=== PATIENT | male | born 1965 | race Caucasian/White ===

== ENCOUNTER 2017-03-03 15:44 | Inpatient (IN) ==
[2017-03-03] MEDS ORDERED: Nitroglycerin 0.4 MG TAB.SUBL SL STA (16:06)
[2017-03-03] MEDS ORDERED: Nitroglycerin 1 INCH/GM PACKET TP ONE (16:06)
[2017-03-03 16:20] LABS: Basophils # 0.1 K/mcL (0.0-0.2); Basophils % 0.6 %; Eosinophils # 0.1 K/mcL (0.0-0.6); Eosinophils % 1.6 %; Hematocrit 41.2 % (37.5-50.1); Hemoglobin 12.5 g/dL (12.9-16.9); Immature Granulocytes % 0.2 % (0-4); Lymphocytes # 2.1 K/mcL (0.6-4.6); Lymphocytes % 24.7 %; Mean Corpuscular HGB Conc 30.3 g/dL (31.6-35.5); Mean Corpuscular Hemoglobin 26.7 pg (28.0-33.3); Mean Corpuscular Volume 87.8 fL (83.0-100.0); Mean Platelet Volume 12.5 fL (9.4-12.4); Monocytes # 0.6 K/mcL (0.0-1.3); Monocytes % 6.8 %; Neutrophils # 5.6 K/mcL (1.6-8.9); Platelet Count 223 K/mcL (140-400); Red Blood Count 4.69 M/mcL (4.19-5.50); Red Cell Distribution Width 14.1 % (11.5-14.5); Segmented Neutrophils % 66.1 %
[2017-03-03 16:31] LABS: BUN/Creatinine Ratio 31 (6-26); Blood Urea Nitrogen 41 mg/dL (8-26); Carbon Dioxide 26 mEq/L (19-29); Chloride 105 mEq/L (98-109); Glucose 171 mg/dL (70-99); Osmolality,Calculated 304 (280-300); Potassium 4.6 mEq/L (3.5-4.5); Sodium 140 mEq/L (136-145); eGFR For African Americans > 60 (> 60); eGFR For Non-African Americans 57 (> 60)
[2017-03-03] MEDS ORDERED: Furosemide 40 MG/4 ML VIAL IVP ONE (16:42)
--- NOTE | 2017-03-03 16:46 | Emergency Department Note ---
Disposition Clinical Impression: Hypoxemia Congestive heart failure Qualifiers: Congestive heart failure type: combined Congestive heart failure chronicity: acute Qualified Code(s): I50.41 - Acute combined systolic (congestive) and diastolic (congestive) heart failure Diabetes Qualifiers: Diabetes mellitus type: type 2 Diabetes mellitus complication status: without complication Diabetes mellitus correction insulin use: without correction use Qualified Code(s): E11.9 - Type 2 diabetes mellitus without complications Disposition: Admitted As Inpatient Condition: Fair Time of Disposition: 16:47 SOB HPI - General Chief Complaint: ED Shortness of Breath/Dyspnea Stated Complaint: CAN Time Seen by Provider: 03/03/17 15:57 Source: other Limitations: no limitations Nursing Notes Reviewed: Yes Vital Signs Reviewed: Yes - History of Present Illness Patient has a history of heart failure and has had a recent echocardiogram ejection fraction 25% which only showed a small pericardial effusion and presents today with shortness of breath progressively worsening for the last 2 weeks and worse with exertion and he also has 30 pounds weight gain. The weight gain and shortness of breath worsened after he got a contrast CT scan to look for a abdominal hernia which came back negative according to the patient. He denies any fever or blurred vision, rhinorrhea, cough, sneezing, blood in the urine or stool. No pain or numbness of extremities. No skin rash or bruising of the skin no chest pain. Social history: No smoking or alcohol - Related Data Home Medications Medication Instructions Recorded Confirmed Insulin LISPRO [Humalog] 35 unit SQ TIDWM 04/10/16 03/03/17 Lisinopril [Zestril] 10 mg PO DAILY 04/10/16 03/03/17 Metformin HCl [Glucophage] 1,000 mg PO BID 05/23/16 03/03/17 Albuterol Sulfate [Proair Hfa] 2 puff IH Q6H PRN 03/03/17 03/03/17 Atorvastatin Calcium [Lipitor] 80 mg PO HS 03/03/17 03/03/17 Carvedilol 12.5 mg PO BID 03/03/17 03/03/17 Fenofibrate [Tricor] 54 mg PO DAILY 03/03/17 03/03/17 Insulin DETEMIR [Levemir] 40 unit SQ QAM 03/03/17 03/03/17 Montelukast [Singulair] 10 mg PO DAILY 03/03/17 03/03/17 SitaGLIPtin [Januvia] 100 mg PO DAILY 03/03/17 03/03/17 Spironolactone [Aldactone] 12.5 mg PO DAILY 03/03/17 03/03/17 Allergies Allergy/AdvReac Type Severity Reaction Status Date / Time Penicillins Allergy Hives Verified 04/10/16 11:31 coconut AdvReac Hives Verified 05/23/16 02:53 Review of Systems: As Per HPI Past Medical History - Past Medical History Medical history: Reports: diabetes, hypertension Surgical history: Reports: non-contributory Psychiatric history: Reports: no psych history - Social History Smoking Status: Never smoker Smokeless Tobacco Status: No Alcohol use: Reports: none Drug use: Reports: none Physical Exam CONSTITUTIONAL: Alert and oriented X3, well-nourished, well appearing, in no apparent distress HEAD: Normocephalic; atraumatic. EYES: PERRL, no scleral icterus. NOSE: The nose is normal in appearance without rhinorrhea RESP: Normal chest excursion with respiration; breath sounds clear and equal bilaterally; no wheezes, rhonchi, or rales CARD: Regular rhythm, without murmurs, rub or gallop ABD: Non-distended; non-tender, soft,without rigidity, rebound or guarding SKIN: Normal for age and race; warm and dry; no apparent lesions Extremities: 3+ bilateral lower extremity edema, pulses 2+ and equal in all 4 extremities - General Limitations: no limitations General appearance: alert, in no apparent distress Course Vital Signs Temperature 97.5 F L 03/03/17 15:45 Pulse Rate 75 03/03/17 15:45 Respiratory Rate 20 03/03/17 15:45 Blood Pressure 129/86 03/03/17 15:45 O2 Sat by Pulse Oximetry 95 03/03/17 15:45 Temperature 97.5 F L 03/03/17 15:45 Pulse Rate 69 03/03/17 17:25 Respiratory Rate 14 03/03/17 17:25 Blood Pressure 109/72 03/03/17 17:25 O2 Sat by Pulse Oximetry 94 03/03/17 17:25 Oxygen Delivery Oxygen Delivery Room Air Shortness of Breath/Dyspnea - MDM Narrative Medical decision making narrative: I did review the patient's labs with minimal increase in the creatinine level, I did review the old records including echocardiogram, patient will receive sublingual nitroglycerin 1, IV Lasix 40 mg I did speak with Dr. Mancilla who accepts the patient for admission 164 Chest x-ray does show pulmonary edema. There is a question about an opacity but I do not find an infectious signs or symptoms when reevaluating the patient so no antibiotics will be given at this time. 1647 I did review the EKG showing normal sinus rhythm with a rate of 74 without acute ischemic change 1733 - Lab Data Result diagrams: 03/03/17 16:10 03/03/17 16:10 Lab Results 03/03/17 03/03/17 03/03/17 Range/Units 16:10 16:10 16:10 WBC 8.5 (4.3-11.1) K/mcL RBC 4.69 (4.19-5.50) M/mcL Hgb 12.5 L (12.9-16.9) g/dL Hct 41.2 (37.5-50.1) % MCV 87.8 (83.0-100.0) fL MCH 26.7 L (28.0-33.3) pg MCHC 30.3 L (31.6-35.5) g/dL RDW 14.1 (11.5-14.5) % Plt Count 223 (140-400) K/mcL MPV 12.5 H (9.4-12.4) fL Immature Gran % 0.2 (0-4) % Seg Neutrophils % 66.1 % Lymphocytes % 24.7 % Monocytes % 6.8 % Eosinophils % 1.6 % Basophils % 0.6 % Neutrophils # 5.6 (1.6-8.9) K/mcL Lymphocytes # 2.1 (0.6-4.6) K/mcL Monocytes # 0.6 (0.0-1.3) K/mcL Eosinophils # 0.1 (0.0-0.6) K/mcL Basophils # 0.1 (0.0-0.2) K/mcL Sodium 140 (136-145) mEq/L Potassium 4.6 H (3.5-4.5) mEq/L Chloride 105 (98-109) mEq/L Carbon Dioxide 26 (19-29) mEq/L BUN 41 H (8-26) mg/dL Creatinine 1.33 H (0.72-1.25) mg/dL Est GFR ( Amer) > 60 (> 60) Est GFR (Non-Af Amer) 57 L (> 60) BUN/Creatinine Ratio 31 H (6-26) Glucose 171 H (70-99) mg/dL Calculated Osmolality 304 H (280-300) Calcium 9.0 (8.6-10.8) mg/dL Troponin I 0.02 (0-0.03) ng/mL B-Natriuretic Peptide (0-100) pg/mL 03/03/ Range/Units 16:10 WBC (4.3-11.1) K/mcL RBC (4.19-5.50) M/mcL Hgb (12.9-16.9) g/dL Hct (37.5-50.1) % MCV (83.0-100.0) fL MCH (28.0-33.3) pg MCHC (31.6-35.5) g/dL RDW (11.5-14.5) % Plt Count (140-400) K/mcL MPV (9.4-12.4) fL Immature Gran % (0-4) % Seg Neutrophils % % Lymphocytes % % Monocytes % % Eosinophils % % Basophils % % Neutrophils # (1.6-8.9) K/mcL Lymphocytes # (0.6-4.6) K/mcL Monocytes # (0.0-1.3) K/mcL Eosinophils # (0.0-0.6) K/mcL Basophils # (0.0-0.2) K/mcL Sodium (136-145) mEq/L Potassium (3.5-4.5) mEq/L Chloride (98-109) mEq/L Carbon Dioxide (19-29) mEq/L BUN (8-26) mg/dL Creatinine (0.72-1.25) mg/dL Est GFR ( Amer) (> 60) Est GFR (Non-Af Amer) (> 60) BUN/Creatinine Ratio (6-26) Glucose (70-99) mg/dL Calculated Osmolality (280-300) Calcium (8.6-10.8) mg/dL Troponin I (0-0.03) ng/mL B-Natriuretic Peptide 961 H (0-100) pg/mL
[2017-03-03] MEDS ORDERED: Naloxone 0.4 MG/ML INJ IVP PRN (17:43)
[2017-03-03] MEDS ORDERED: Ondansetron ODT 4 MG TAB.RAPDIS SL PRN (17:43)
[2017-03-03] MEDS ORDERED: Acetaminophen 325 MG TABLET PO PRN (17:43)
[2017-03-03] MEDS ORDERED: D5% in Water 1,000 ML IVC PRN (17:49)
[2017-03-03] MEDS ORDERED: *HR* Dextrose 50 % in Water (Syg) 50 ML SYRINGE IVP PRN (17:49)
[2017-03-03] MEDS ORDERED: Dextrose Gel 15 GM PO PRN ×2 (17:49)
[2017-03-03] MEDS: *HR* Heparin 5,000 UNIT/ML VIAL SQ SCH (18:41)
--- NOTE | 2017-03-03 18:58 | Internal Med History&Physical ---
<Madisyn Bazan - Last Filed: 03/03/17 20:40> Date of Encounter: 03/03/17 Time of Encounter: 18:47 Assessment and Plan (1) Congestive heart failure Current visit: Yes Status: Acute 1 previous cardiac echo did show EF of 25%-past 2 weeks patient has been experiencing dyspnea on exertion and lower extremity swelling as well as increasing abdominal girth, Orthopnea. He was 90% while ambulating. BNP was 912. We will continue to diurese patient 2 monitor intake and output and daily weights 3 1500 mL fluid restriction 4 low sodium diet Qualifiers: Congestive heart failure type: combined Congestive heart failure chronicity : acute Qualified Code(s): I50.41 - Acute combined systolic (congestive) and diastolic (congestive) heart failure (2) JOSEY (acute kidney injury) Current visit: Yes Status: Acute Creatinine is 1.33 his baseline appears to be around 1.00. Suspect this may be related to CHF, however he states he did receive IV contrast two weeks ago and he noticed weight gain and a decrease in his urine out put. He did hold his metformin 48 hrs post scan. We will continue to trend his creatinine. 2 check urine NA and urinalysis 3 monitor I/O daily weights 4 avoid nephro toxins 5 continue to diurese patient closely monitoring creatinine (3) Diabetes Current visit: Yes Status: Acute 1 Accu-Cheks before meals at bedtime with sliding scale insulin-we will hold oral medications for now and resume on discharge Qualifiers: Diabetes mellitus type: type 2 Diabetes mellitus complication status: without complication Diabetes mellitus skilled nursing insulin use: without skilled nursing use Qualified Code(s): E11.9 - Type 2 diabetes mellitus without complications (4) DVT prophylaxis Current visit: Yes Status: Acute 1 heparin subcutaneous Internal Medicine - H&P: HPI Chief complaint: Dyspnea Admitted From: Emergency Dept Plans for Post Hospital Care: Home History of present illness: Mr. De Oliveira is a 51 year old male past medical history of diabetes hypertension cardiomyopathy CHF and CAD SWAPNIL. Patient has been experiencing increasing shortness of breath as well as a 30 pound weight gain over the past 2 weeks. He does have a known history of nonischemic cardiomyopathy with last ejection fraction was 25% in February 2017. He did have a left heart catheter approximately 4 years ago which was unremarkable per patient report. He apparently had a CT completed approximately 2 weeks ago which did show a small pericardial effusion which was confirmed on echocardiogram. He denies any chest pain cough fever or chills. 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 Walk test SPO2 dropped down to 90%. He did not complain of any chest pain. He presented to the ER for evaluation. According to ER records lab work did show his AK I as well as a BNP of 61 chest x-ray with mild right basilar opacity. He has been admitted for further workup and evaluation Past Med Surg Social Fam HX - Past Medical History Medical history: diabetes, hypertension Psychiatric history: no psych history - Past Surgical History Surgical History: non-contributory - Social History Smoking Status: Never smoker Smokeless Tobacco Status: No Alcohol use: none Drug use: none - Family History Mother Cause of : aneurysm of abdomen Hx Family Cardiac Disorders: Yes ([place] heart transplant) Hx Family Endocrine Disorder: Yes Hx Family Neurologic Disorders: Yes (CVA) Father Hx Family Endocrine Disorder: Yes Internal Medicine - H&P: Meds Insulin LISPRO [Humalog] 35 unit SQ TIDWM 04/10/16 [History] Lisinopril [Zestril] 10 mg PO DAILY 04/10/16 [History] Metformin HCl [Glucophage] 1,000 mg PO BID 05/23/16 [History] Albuterol Sulfate [Proair Hfa] 2 puff IH Q6H PRN 03/03/17 [History] Atorvastatin Calcium [Lipitor] 80 mg PO HS 03/03/17 [History] Carvedilol 12.5 mg PO BID 03/03/17 [History] Fenofibrate [Tricor] 54 mg PO DAILY 03/03/17 [History] Insulin DETEMIR [Levemir] 40 unit SQ QAM 03/03/17 [History] Montelukast [Singulair] 10 mg PO DAILY 03/03/17 [History] SitaGLIPtin [Januvia] 100 mg PO DAILY 03/03/17 [History] Spironolactone [Aldactone] 12.5 mg PO DAILY 03/03/17 [History] 3 Allergy/AdvReac Type Severity Reaction Status Date / Time Penicillins Allergy Hives Verified 04/10/16 11:31 coconut AdvReac Hives Verified 05/23/16 02:53 ROS unobtainable: due to mental status All Systems PM: A 10-system review of systems was performed and is negative for pertinent findings except as documented above in the HPI. - Constitutional Constitutional: weight gain, no chills, no fever(s), no night sweats - EENT Eyes: no change in vision, no discharge, no pain, no photophobia Nose, mouth and throat: no dysphagia, no nasal discharge, no neck pain, no sore throat - Cardiovascular Cardiovascular ROS IM: dyspnea on exertion, edema, orthopnea, no chest pain, no diaphoresis, no dyspnea, no lightheadedness, no palpitations, no syncope - Respiratory Respiratory: no cough, no dyspnea, no wheezing, no excessive phlegm production - Gastrointestinal Gastrointestinal: bloating, early satiety, no abdominal pain, no diarrhea, no hematemesis, no hematochezia, no melena, no nausea, no vomiting - Musculoskeletal Musculoskeletal ROS IM: no numbness, no tingling - Integumentary Integumentary IM: no rash, no unusual bruising - Neurological Neurological ROS: no confusion, no convulsions, no focal weakness, no numbness, no tingling, no tremor(s) - Hematologic/Lymphatic Hematologic/Lymphatic: no easy bruising - Constitutional Vitals: Temp Pulse Resp BP Pulse Ox 97.7 F 74 14 123/83 93 03/03/17 17:54 03/03/17 17:54 03/03/17 17:54 03/03/17 17:54 03/03/17 17:54 General appearance: Present: A&O X 3, morbidly obese - Head Head exam: Present: atraumatic, normocephalic - Eye Eye exam: Present: PERRL, conjuntiva pink, sclera anicteric Pupils: Present: PERRL - Neck Neck exam general surgery: Present: supple, trachea midline. Absent: lymphadenopathy - Respiratory Respiratory exam: Present: CTAB. Absent: accessory muscle use, rales, rhonchi, wheezes - Cardiovascular Cardiovascular exam: Present: RRR, +S1, +S2. Absent: diastolic murmur, gallop, rubs, systolic murmur - GI/Abdominal GI/Abdominal exam: Present: normal bowel sounds, soft, no peritoneal signs. Absent: distended, tenderness - Extremities Exam Extremities exam: Present: warm, radial pulses palpable and symmetrical. Absent : calf tenderness, cyanotic, pedal edema - Neurological Exam Neurological exam: Present: CN II-XII intact, oriented X3, no focal deficits. Absent: pronater drift, facial droop, speech deficit - Skin Skin exam: Present: dry, intact Internal Med - H&P Results - Labs CBC & Chem 7: 03/03/17 16:10 03/03/17 16:10 - EKG Data EKG shows normal: sinus rhythm - Diagnostic Studies Other Images Additional comments: Chest X-Ray 03/03/17 15:58 IMPRESSION: Mild right basilar opacity. Atelectasis versus infection. D/ / Margie Hernandez MD / Margie Hernandez MD Interpreting Provider: Margie Hernandez MD <Dagoberto Huerta - Last Filed: 03/04/17 01:15> Date of Encounter: 03/04/17 Internal Medicine - H&P: HPI History of present illness: Mr. De Oliveira is a 51 year old male All Systems PM: A 10-system review of systems was performed and is negative for pertinent findings except as documented above in the HPI. - Constitutional Vitals: Temp Pulse Resp BP Pulse Ox 97.5 F L 78 16 117/76 95 03/04/17 00:00 03/04/17 00:00 03/04/17 00:00 03/04/17 00:00 03/04/17 00:00 Internal Med - H&P Results - Labs CBC & Chem 7: 03/03/17 16:10 03/03/17 16:10 Labs: Cardiac Enzymes 03/03/17 Range/Units 22:16 Troponin I 0.02 (0-0.03) ng/mL - Attending Attestation I examined this patient and my medical decision-making was reviewed with the HEALTH SERVICES DIRECTOR. I agree with the documented findings, disposition and treatment plan as described except to the extent set forth below. I have seen and examined the patient. Patient is a 51 male with past medical history of CHF, coronary artery disease, SWAPNIL, diabetes and hypertension. He presents to the ED with complaints of shortness of breath. Patient also states he has bilateral leg edema and has had a 30 pound weight gain over the past 2 weeks. Symptoms started about 2 weeks ago and have gradually been worsening. His recent echocardiogram shows LVEF of 25%. Patient will schedule for a routine cardiology outpatient follow-up, but he developed shortness of breath and was advised to go to the ED. Patient denies any other complaints at this time. He does state he feels better after IV Lasix. He has good urine output. Patient has been explained about his condition. He understood and agreed. No unanswered questions. CODE STATUS full code. Heart rate 78, blood pressure 117/76, O2 sat 95% on 2 L nasal cannula. Heart S1 -S2 positive. Lungs bilateral good air entry, mild rales in both bases. Abdomen soft nontender. Extremities bilateral lower leg 1+ edema.
[2017-03-03 19:09] LABS: Bilirubin,Urine Negative (Negative); Blood,Urine Negative (Negative); Clarity,Urine Clear (Clear); Color,Urine Yellow (Yellow); Glucose,Urine (UA) Normal (Normal); Ketones,Urine Negative (Negative); Leukocyte Esterase,Urine Negative (Negative); Nitrite,Urine Negative (Negative); Protein,Urine Negative (Neg-Trace); Specific Gravity,Urine 1.014 (1.010-1.025); Urobilinogen,Urine Normal (Normal)
[2017-03-03] MEDS ORDERED: Insulin LISPRO 300 UNITS/3 ML VIAL SQ SCH (21:00)
[2017-03-03] MEDS ORDERED: Furosemide 40 MG/4 ML VIAL IVP SCH (23:00)
[2017-03-04 01:20] LABS: Basophils # 0.1 K/mcL (0.0-0.2); Basophils % 0.7 %; Eosinophils # 0.2 K/mcL (0.0-0.6); Eosinophils % 2.1 %; Hematocrit 41.3 % (37.5-50.1); Hemoglobin 12.7 g/dL (12.9-16.9); Immature Granulocytes % 0.3 % (0-4); Lymphocytes # 2.5 K/mcL (0.6-4.6); Lymphocytes % 25.8 %; Mean Corpuscular HGB Conc 30.8 g/dL (31.6-35.5); Mean Corpuscular Hemoglobin 26.8 pg (28.0-33.3); Mean Corpuscular Volume 87.3 fL (83.0-100.0); Monocytes # 0.7 K/mcL (0.0-1.3); Monocytes % 7.1 %; Neutrophils # 6.3 K/mcL (1.6-8.9); Platelet Count 222 K/mcL (140-400); Red Blood Count 4.73 M/mcL (4.19-5.50); Red Cell Distribution Width 14.2 % (11.5-14.5)
[2017-03-04 01:37] LABS: BUN/Creatinine Ratio 28 (6-26); Blood Urea Nitrogen 39 mg/dL (8-26); Calcium 9.3 mg/dL (8.6-10.8); Carbon Dioxide 27 mEq/L (19-29); Chloride 102 mEq/L (98-109); Glucose 117 mg/dL (70-99); Magnesium 1.6 mg/dL (1.6-2.6); Osmolality,Calculated 302 (280-300); Potassium 4.2 mEq/L (3.5-4.5); Sodium 141 mEq/L (136-145); eGFR For African Americans > 60 (> 60); eGFR For Non-African Americans 53 (> 60)
[2017-03-04] MEDS: *HR* Heparin 5,000 UNIT/ML VIAL SQ SCH (05:41)
[2017-03-04] MEDS ORDERED: Fenofibrate 54 MG TABLET PO SCH (09:00)
[2017-03-04] MEDS ORDERED: Insulin DETEMIR 100 UNIT/ML X5UNITS SQ SCH (09:00)
[2017-03-04] MEDS: Insulin LISPRO 300 UNITS/3 ML VIAL SQ SCH ×2 (09:45→12:57)
--- NOTE | 2017-03-04 10:46 | Discharge Summary ---
Addendum entered and electronically signed by Chris Wilson, 03/04/17 13:55: Physical exam: Gen.: Patient is awake and alert and oriented 3, sitting up in the chair, no acute distress Lungs: Diminished breath sounds bilaterally, no rales, rhonchi, wheezes noted Heart: Regular rate and rhythm, no murmurs, rubs, gallops Abdomen: Abdomen soft, nontender, nondistended. Normoactive bowel sounds Extremities: Trace bilateral lower extremity edema at the ankle. Peripheral pulses intact. Original Note: <Chris Wilson - Last Filed: 03/04/17 13:50> Date of Encounter: 03/04/17 Time of Encounter: 10:43 - Discharge Diagnosis (1) Congestive heart failure Priority: Primary Status: Acute Qualifiers: Congestive heart failure type: combined Congestive heart failure chronicity : acute on chronic Qualified Code(s): I50.43 - Acute on chronic combined systolic (congestive) and diastolic (congestive) heart failure (2) Hypoxemia Priority: Secondary Status: Resolved (3) Diabetes Priority: Secondary Status: Chronic Qualifiers: Diabetes mellitus type: type 2 Diabetes mellitus complication status: without complication Diabetes mellitus penitentiary insulin use: without intermodal customer service use Qualified Code(s): E11.9 - Type 2 diabetes mellitus without complications (4) JOSEY (acute kidney injury) Priority: Secondary Status: Acute - Discharge Medications Prescriptions: Furosemide [Lasix] 40 mg PO BID #30 tab Home Medications: Insulin LISPRO [Humalog] 35 unit SQ TIDWM 04/10/16 [History] Lisinopril [Zestril] 10 mg PO DAILY 04/10/16 [History] Metformin HCl [Glucophage] 1,000 mg PO BID 05/23/16 [History] Albuterol Sulfate [Proair Hfa] 2 puff IH Q6H PRN 03/03/17 [History] Atorvastatin Calcium [Lipitor] 80 mg PO HS 03/03/17 [History] Carvedilol 12.5 mg PO BID 03/03/17 [History] Fenofibrate [Tricor] 54 mg PO DAILY 03/03/17 [History] Insulin DETEMIR [Levemir] 40 unit SQ QAM 03/03/17 [History] Montelukast [Singulair] 10 mg PO DAILY 03/03/17 [History] SitaGLIPtin [Januvia] 100 mg PO DAILY 03/03/17 [History] Spironolactone [Aldactone] 12.5 mg PO DAILY 03/03/17 [History] Furosemide [Lasix] 40 mg PO BID #30 tab 03/04/17 [Rx] Allergies/Adverse Reactions: 3 Allergy/AdvReac Type Severity Reaction Status Date / Time Penicillins Allergy Hives Verified 04/10/16 11:31 coconut AdvReac Hives Verified 05/23/16 02:53 Date of admission: 03/03/17 20:37 Primary care physician: Kayden Elizondo DO Discharging clinician: Chris Wilson Anticipated date of discharge: 03/04/17 - Patient Status Disposition: Home, Self-Care Condition: Fair Functional capacity at discharge: independent ambulation Overall status at discharge: patient is progressing back to baseline - Ambulatory Orders Ambulatory Orders: Basic Metabolic Panel [CHEM] Time Frame: 03/08/17, Facility: [facility], Location: Lab - Discharge Instructions Instructions: Furosemide (By mouth), Heart Failure (DC), Diabetes Mellitus Type 2 in Adults (DC) Follow Up With: Kayden Elizondo DO [Primary Care Provider] - (1 week, appointment requested, if you do not receive a call for an appointment please call to make appointment within 1 week of discharge) Gayle Silva [Partnered Physician] - (1-2 weeks, appointment requested, if you do not receive a call please call office to make appointment) Additional Instructions: Please resume your home medications. Please take Lasix twice a day. Please have your labs checked on Wednesday. Please limit your fluid and salty food intake. Please weigh yourself daily and take these weights to your doctor's appointments. Please return for any normal worsening symptoms. - Diet and Activity Activity: increase activity as tolerated Diet: low fat, low cholesterol, low salt diet Interval History: Patient seen and examined at bedside. He states that he feels much better today he is sitting up in the chair and appears comfortable in no acute distress. He denies chest pain, shortness of breath. He states his swelling in his lower extremities and upper extremities greatly improved. He reports good urine output overnight. Hospital course: Mr. De Oliveira is a 51 year old male with history of systolic heart failure presented with progressive shortness of breath. Patient also reported orthopnea. Upon arrival patient was found to have an elevated BMP and significant lower extremity edema. Patient was aggressively diuresed and had 5 L of urine output in 24 hours. His edema and respiratory symptoms improved greatly. We recommended to the patient to stay another day for observation and to recheck his kidney function the morning however given the holiday the patient strongly requested to leave. We will discharge the patient home with a prescription for furosemide and in order to have his labs checked on Wednesday. Patient verbalized understanding of the risks of being discharged to soon including worsening of his symptoms and the need to return to the hospital for readmission. The patient will be discharged home in fair condition. - Time Spent with Patient Total time spent providing and/or coordinating discharge services: - Constitutional Vitals: Temp Pulse Resp BP Pulse Ox 97.6 F 73 20 139/99 93 03/04/17 08:00 03/04/17 08:00 03/04/17 08:00 03/04/17 08:00 03/04/17 08:00 General appearance: Present: A&O X 3, morbidly obese <Erasmo Bhatt - Last Filed: 03/04/17 14:06> Date of Encounter: 03/04/17 Date of admission: 03/03/17 20:37 Primary care physician: Kayden Elizondo, Hospital course: Mr. De Oliveira is a 51 year old male - Time Spent with Patient Total time spent providing and/or coordinating discharge services: - Constitutional Vitals: Temp Pulse Resp BP Pulse Ox 97.6 F 73 20 116/82 95 03/04/17 08:00 03/04/17 08:00 03/04/17 08:00 03/04/17 12:00 03/04/17 13:10 General appearance: Present: morbidly obese, no acute distress, obese - Head Head exam: Present: atraumatic, normocephalic - Neck Neck exam general surgery: Present: supple, trachea midline. Absent: lymphadenopathy - Respiratory Respiratory exam: Present: CTAB. Absent: accessory muscle use, rales, rhonchi, wheezes - Cardiovascular Additional comments: edema bilat LE - GI/Abdominal GI/Abdominal exam: Present: normal bowel sounds, soft, no peritoneal signs. Absent: distended, tenderness - Neurological Exam Neurological exam: Present: CN II-XII intact, oriented X3, no focal deficits. Absent: pronater drift, facial droop, speech deficit - Skin Skin exam: Present: dry, intact - Attending Attestation I independently interviewed and examiedn this pt alongside Dr. Wilson , medical claims processor. I agree with his findings, assessment and plan. We discussed CHF dc instructions with the pt including the importance of daily weights. Pt otherwise is doing well and stable for dc. Lasix po prescribed, and repeat BMP next week. All else as above. 32 min spent on dc/coord of care.
[2017-03-04 12:36] VITALS: BP 116/82
--- NOTE | 2017-03-08 08:48 | Electrocardiograph Report ---
[place] [id number] Test Date: 2017-03-03 Pat Name: Tim De Oliveira Department: 104 Room: 2NE29 Gender: M Target Protection Specialist: SHABBIR : 1965 Requested By: Chris Kee Order Number: [id number] Reading MD: Hamzah Reagan DO Measurements Intervals [place] Rate: 74 P: 34 RI: 180 QRS: -56 QRSD: 79 T: 47 QT: 365 QTc: 392 Interpretive Statements SINUS RHYTHM LOW QRS VOLTAGE IN PRECORDIAL LEADS POSSIBLE ANTERIOR MYOCARDIAL INFARCTION, PROBABLY OLD INFERIOR MYOCARDIAL INFARCTION, PROBABLY OLD Electronically Signed On 03-08-2017 8:46:41 EST by Hamzah Reagan DO
== END 2017-03-04 13:30 | disposition home or self-care (01) | DRG 292 ==
LOC: EMEROO 15:44 → 2NENU 15:44
PROVIDERS: ADMIT Internal Medicine; ATTEND Internal Medicine

== ENCOUNTER 2018-12-14 02:52 | Observation (INO) ==
[2018-12-14] MEDS ORDERED: 0.9 % Sodium Chloride 1,000 ML IVC ONE (03:12)
[2018-12-14] MEDS ORDERED: methylPREDNISolone 125 MG/2 ML VIAL IVP ONE (03:12)
[2018-12-14] MEDS ORDERED: Ipratropium/Albuterol Neb 3 ML IH ONE (03:12)
[2018-12-14] MEDS ORDERED: cefTRIAXone 2,000 MG in 0.9 % Sodium Chloride Mini Bag 100 ML IVPB ONE (03:18)
[2018-12-14] MEDS ORDERED: 0.9 % Sodium Chloride 500 ML IV ONE (03:21)
[2018-12-14] MEDS: 0.9 % Sodium Chloride 1,000 ML IVC SCH ×2 (03:30→04:37)
[2018-12-14 03:38] LABS: ABG Base Excess 9 mEq/L (-2 to 3); ABG HCO3 35 mEq/L (21-27); ABG Oxygen Saturation 95 % (95-98); ABG PCO2 51 mmHg (35-45); ABG PH 7.44 pH Units (7.32-7.45); ABG PO2 73 mmHg (85-104); ABG TCO2 37 mEq/L (20-26)
[2018-12-14] MEDS ORDERED: cefTRIAXone 2,000 MG in Water for inj. (sterile) 20 ML IVPB ONE (03:45)
[2018-12-14 03:55] LABS: Basophils # 0.1 K/mcL (0.0-0.2); Basophils % 0.4 %; Eosinophils # 0.1 K/mcL (0.0-0.6); Eosinophils % 0.9 %; Hematocrit 39.8 % (37.5-50.1); Hemoglobin 12.9 g/dL (12.9-16.9); Immature Granulocytes % 0.5 % (0-4); Lymphocytes # 1.2 K/mcL (0.6-4.6); Lymphocytes % 8.3 %; Mean Corpuscular HGB Conc 32.4 g/dL (31.6-35.5); Mean Corpuscular Volume 86.5 fL (83.0-100.0); Mean Platelet Volume 12.3 fL (9.4-12.4); Monocytes # 0.8 K/mcL (0.0-1.3); Monocytes % 5.4 %; Neutrophils # 11.8 K/mcL (1.6-8.9); Platelet Count 186 K/mcL (140-400); Red Cell Distribution Width 14.9 % (11.5-14.5); Segmented Neutrophils % 84.5 %
[2018-12-14 04:04] LABS: INR 1.2; Prothrombin Time 13.1 Seconds (9.4-12.1)
[2018-12-14 04:07] LABS: Activated Partial Thrombo Time 26.6 Seconds (26.0-36.0)
[2018-12-14 04:13] LABS: BUN/Creatinine Ratio 30 (6-26); Blood Urea Nitrogen 35 mg/dL (6-20); Calcium 9.7 mg/dL (8.6-10.3); Carbon Dioxide 32 mEq/L (23-29); Chloride 92 mEq/L (98-107); Glucose 222 mg/dL (70-105); Osmolality,Calculated 295 (280-300); Potassium 3.7 mEq/L (3.5-5.1); Sodium 135 mEq/L (136-145); eGFR For African Americans > 60 (> 60); eGFR For Non-African Americans > 60 (> 60)
[2018-12-14 04:14] LABS: Albumin 4.2 g/dL (3.5-5.7); Albumin/Globulin Ratio 1.5 (1.1-2.2); Bilirubin,Direct 0.1 mg/dL (0.0-0.2); Bilirubin,Indirect 0.6 mg/dL (0.0-1.2); Bilirubin,Total 0.7 mg/dL (0.3-1.0); Globulin 2.8 g/dL (2.4-3.5); Magnesium 1.5 mg/dL (1.6-2.6); Phosphorous 3.6 mg/dL (2.7-4.5)
[2018-12-14 04:17] LABS: Troponin I 0.04 ng/mL (< 0.04)
[2018-12-14] MEDS ORDERED: Isovue-370 500 ML BOTTLE IVP ONE (04:19)
[2018-12-14 05:35] LABS: Bilirubin,Urine Negative (Negative); Blood,Urine Negative (Negative); Clarity,Urine Clear (Clear); Color,Urine Yellow (Yellow); Glucose,Urine (UA) 250 mg/dL (Normal); Ketones,Urine Negative (Negative); Leukocyte Esterase,Urine Negative (Negative); Nitrite,Urine Negative (Negative); PH,Urine 5.5 pH Units (5.0-8.0); Protein,Urine Negative (Neg-Trace); Specific Gravity,Urine 1.017 (1.010-1.025); Urobilinogen,Urine Normal (Normal)
[2018-12-14] MEDS ORDERED: levoFLOXacin 750 MG/150 ML 750 MG/150 ML BAG IVPB ONE ×2 (06:11→11:00)
[2018-12-14] MEDS ORDERED: *HR* HYDROcodone/Acet 5/325 mg TABLET PO ONE (06:13)
--- NOTE | 2018-12-14 06:38 | Emergency Department Note ---
Disposition Clinical Impression: Troponin level elevated Pneumonia Qualifiers: Pneumonia type: due to unspecified organism Laterality: bilateral Lung locat ion: lower lobe of lung Qualified Code(s): J18.1 - Lobar pneumonia, unspecified organism Sepsis Qualifiers: Sepsis type: sepsis due to unspecified organism Sepsis acute organ dysfunction status: without acute organ dysfunction Qualified Code(s): A41.9 - Sepsis, unspecified organism Disposition: Admitted As Inpatient Condition: Fair Forms: ED Satisfaction Letter Time of Disposition: 06:13 URI/Sore Throat HPI - General Chief Complaint: ED Upper Respiratory Infection Stated Complaint: cough, chills Time Seen by Provider: 12/14/18 02:59 Source: patient Limitations: no limitations Nursing Notes Reviewed: Yes Vital Signs Reviewed: Yes - History of Present Illness HPI Narrative: 53-year-old male patient presents to the emergency room for complaining of cough with shortness of breath. Sputum production. He has been short of breath. He was seen at [facility] and placed on Z-Ildefonso but did not get any better and saw his family doctor December 13 and was placed on codeine syrup and steroids. He states that he still was becoming winded. He does not smoke. No recent surgeries or long distance car rides or trips. Pt Subjective Complaint: fever, cough, nasal congestion Onset (ago): week(s) (1) Duration: constant, gradually worsening Severity: moderate Improves with: nothing Worsens with: exertion, speaking If sputum, description: yellow Associated symptoms: Reports: fever, chills, rhinorrhea, nasal congestion, shortness of breath. Denies: voice changes, myalgias, sore throat, abdominal pain, vomiting, diarrhea, dysuria, ear pain - Related Data Home Medications Medication Instructions Recorded Confirmed Lisinopril [Zestril] 10 mg PO DAILY 04/10/16 06/04/18 Metformin HCl [Glucophage] 1,000 mg PO BID 05/23/16 06/04/18 Albuterol Sulfate [Proair Hfa] 2 puff IH Q6H PRN 03/03/17 06/04/18 Atorvastatin Calcium [Lipitor] 80 mg PO HS 03/03/17 06/04/18 Carvedilol 12.5 mg PO BID 03/03/17 06/04/18 Fenofibrate [Tricor] 54 mg PO DAILY 03/03/17 06/04/18 Montelukast [Singulair] 10 mg PO DAILY 03/03/17 06/04/18 SitaGLIPtin [Januvia] 100 mg PO DAILY 03/03/17 06/04/18 Spironolactone [Aldactone] 12.5 mg PO DAILY 03/03/17 06/04/18 Previous Rx's Medication Instructions Recorded Furosemide [Lasix] 40 mg PO BID #30 tab 03/04/17 Azithromycin [Zithromax] 0 mg PO Q24H #6 tablet 06/04/18 Ofloxacin *EAR* Drops [Floxin] 2 drop RIGHT EAR 5XD #10 bottle 06/04/18 Allergies Allergy/AdvReac Type Severity Reaction Status Date / Time coconut AdvReac Hives Verified 12/14/18 02:55 All systems ED: reviewed and negative except as stated. Constitutional: Reports: fever, chills. Denies: weakness, weight change Eyes: Denies: eye pain, eye discharge, vision change ENT ED: Denies: ear pain, throat pain, dental pain, hearing loss, epistaxis, congestion, dysphagia Cardiovascular: Denies: chest pain, palpitations, dyspnea on exertion, edema, syncope URI PMH - Past Medical History Medical history: Reports: diabetes, hypertension Surgical history: Reports: non-contributory Psychiatric history: Reports: no psych history Family history: Reports: non-contributory - Social History Smoking Status: Never smoker Alcohol use: Reports: none Drug use: Reports: none Physical Exam - General Limitations: no limitations General appearance: alert, in no apparent distress - Head Head exam: atraumatic, normocephalic, normal inspection - Eye Eye exam: Present: normal appearance, PERRL, EOMI - ENT ENT exam: normal exam, normal oropharynx, mucous membranes moist - Neck Neck exam: Present: normal inspection, full ROM, trachea midline. Absent: tenderness - Chest Chest inspection: Present: normal inspection, symmetric chest wall rise. Absent: tenderness - Respiratory Respiratory exam: Present: normal lung sounds bilaterally, respiratory distress, wheezes, other (Not moving much air) - Cardiovascular Cardiovascular exam: Present: tachycardia (At 106), normal heart sounds - Abdominal Exam Abdominal exam: Present: soft, Non-Tender, normal bowel sounds. Absent: tenderness, distention, guarding, rebound, rigidity - Extremities Exam Extremities exam: Present: normal inspection, full ROM, normal capillary refill. Absent: tenderness, pedal edema, joint swelling, calf tenderness - Back Exam Back exam: Present: normal inspection, full ROM. Absent: tenderness, CVA tenderness (R), CVA tenderness (L) - Neurological Exam Neurological exam: Present: alert, oriented X3, CN II-XII intact - Psychiatric Psychiatric exam: Present: normal affect, normal mood - Skin Skin exam: Present: warm, dry, intact, normal color Course Course Narrative: Patient was placed in examination room. H&P obtained. Nurse notes reviewed. Patient basic blood work, a chest x-ray which showed no obvious acute infiltrate but probable bronchitis. Patient did meet systemic inflammatory response syndrome criteria. Patient does have a leukocytosis but also has taken 1 day worth of prednisone. Patient has not been admitted to the hospital last 30 days but actually not in the last several months. Therefore patient was given 2 g of Rocephin IV after he had blood cultures obtained followed with Levaquin [address] scan was obtained to rule out pulmonary embolism and it was negative for pulmonary embolism. However, patient does have bilateral left greater than right lower lobe pneumonia. Levaquin at this point was added. Patient was ordered a 30 mL/kg bolus based on abnormal body weight of 70 kg Sepsis was diagnosed at 0435. Patient will be admitted to Dr. Martinez - Reevaluation(s) Reevaluation #1: Patient labs were reviewed as well as chest x-ray and EKG. Results discussed with patient Time: 05:00 Reevaluation #2: Patient is resting comfortably and reviewed all his results. Time: 06:50 Vital Signs Temperature 100.3 F H 12/14/18 02:53 Pulse Rate 106 12/14/18 02:53 Respiratory Rate 12/14/18 02:53 Blood Pressure 147/85 12/14/18 02:53 O2 Sat by Pulse Oximetry 90 12/14/18 02:53 Temperature 100.3 F H 12/14/18 02:53 Pulse Rate 81 12/14/18 06:22 Respiratory Rate 20 12/14/18 06:22 Blood Pressure 124/68 12/14/18 06:22 O2 Sat by Pulse Oximetry 95 12/14/18 06:22 Oxygen Delivery Oxygen Delivery Nasal Cannula Upper Respiratory Infection - Medical Records Medical records reviewed: Yes I reviewed the patient's medical records. - Lab Data Lab results reviewed: Yes I reviewed the patient's lab results. Result diagrams: 12/14/18 03:12 12/14/18 03:12 Lab Results 12/14/18 12/14/18 12/14/18 Range/Units 03:12 03:12 03:13 WBC 14.0 H (4.3-11.1) K/mcL RBC 4.60 (4.19-5.50) M/mcL Hgb 12.9 (12.9-16.9) g/dL Hct 39.8 (37.5-50.1) % MCV 86.5 (83.0-100.0) fL MCH 28.0 (28.0-33.3) pg MCHC 32.4 (31.6-35.5) g/dL RDW 14.9 H (11.5-14.5) % Plt Count 186 (140-400) K/mcL MPV 12.3 (9.4-12.4) fL Immature Gran % 0.5 (0-4) % Seg Neutrophils % 84.5 % Lymphocytes % 8.3 % Monocytes % 5.4 % Eosinophils % 0.9 % Basophils % 0.4 % Neutrophils # 11.8 H (1.6-8.9) K/mcL Lymphocytes # 1.2 (0.6-4.6) K/mcL Monocytes # 0.8 (0.0-1.3) K/mcL Eosinophils # 0.1 (0.0-0.6) K/mcL Basophils # 0.1 (0.0-0.2) K/mcL PT 13.1 H (9.4-12.1) Seconds INR 1.2 APTT 26.6 (26.0-36.0) Seconds ABG pH (7.32-7.45) pH Units ABG pCO2 (35-45) mmHg ABG pO2 (85-104) mmHg ABG HCO3 (21-27) mEq/L ABG Total CO2 (20-26) mEq/L ABG O2 Saturation (95-98) % ABG Base Excess (-2 to 3) mEq/L O2 Delivery Device Inspired O2 (1-15=lpm [id number]=%) Sodium 135 L (136-145) mEq/L Potassium 3.7 (3.5-5.1) mEq/L Chloride 92 L (98-107) mEq/L Carbon Dioxide 32 H (23-29) mEq/L BUN 35 H (6-20) mg/dL Creatinine 1.17 (0.70-1.30) mg/dL Est GFR ( Amer) > 60 (> 60) Est GFR (Non-Af Amer) > 60 (> 60) BUN/Creatinine Ratio 30 H (6-26) Glucose 222 H (70-105) mg/dL Calculated Osmolality 295 (280-300) Lactic Acid (0.5-2.2) mmol/L Calcium 9.7 (8.6-10.3) mg/dL Phosphorus (2.7-4.5) mg/dL Magnesium (1.6-2.6) mg/dL Total Bilirubin (0.3-1.0) mg/dL Direct Bilirubin (0.0-0.2) mg/dL Indirect Bilirubin (0.0-1.2) mg/dL AST (13-39) Units/L ALT (7-52) Units/L Alkaline Phosphatase (34-104) Units/L Troponin I (< 0.04) ng/mL Serum Total Protein (6.4-8.9) g/dL Albumin (3.5-5.7) g/dL Globulin (2.4-3.5) g/dL Albumin/Globulin Ratio (1.1-2.2) Urine Color (Yellow) Urine Clarity (Clear) Urine pH (5.0-8.0) pH Units Ur Specific [place] (1.010-1.025) Urine Protein (Neg-Trace) mg/dL Urine Glucose (UA) (Normal) mg/dL Urine Ketones (Negative) mg/dL Urine Blood (Negative) Urine Nitrite (Negative) Urine Bilirubin (Negative) Urine Urobilinogen (Normal) mg/dL Ur Leukocyte Esterase (Negative) 12/14/18 12/14/18 12/14/18 Range/Units 03:13 03:20 03:32 WBC (4.3-11.1) K/mcL RBC (4.19-5.50) M/mcL Hgb (12.9-16.9) g/dL Hct (37.5-50.1) % MCV (83.0-100.0) fL MCH (28.0-33.3) pg MCHC (31.6-35.5) g/dL RDW (11.5-14.5) % Plt Count (140-400) K/mcL MPV (9.4-12.4) fL Immature Gran % (0-4) % Seg Neutrophils % % Lymphocytes % % Monocytes % % Eosinophils % % Basophils % % Neutrophils # (1.6-8.9) K/mcL Lymphocytes # (0.6-4.6) K/mcL Monocytes # (0.0-1.3) K/mcL Eosinophils # (0.0-0.6) K/mcL Basophils # (0.0-0.2) K/mcL PT (9.4-12.1) Seconds INR APTT (26.0-36.0) Seconds ABG pH 7.44 (7.32-7.45) pH Units ABG pCO2 51 H (35-45) mmHg ABG pO2 73 L (85-104) mmHg ABG HCO3 35 H (21-27) mEq/L ABG Total CO2 37 H (20-26) mEq/L ABG O2 Saturation 95 (95-98) % ABG Base Excess 9 H (-2 to 3) mEq/L O2 Delivery Device Cannula Inspired O2 2.0 (1-15=lpm [id number]=%) Sodium (136-145) mEq/L Potassium (3.5-5.1) mEq/L Chloride (98-107) mEq/L Carbon Dioxide (23-29) mEq/L BUN (6-20) mg/dL Creatinine (0.70-1.30) mg/dL Est GFR ( Amer) (> 60) Est GFR (Non-Af Amer) (> 60) BUN/Creatinine Ratio (6-26) Glucose (70-105) mg/dL Calculated Osmolality (280-300) Lactic Acid 2.2 (0.5-2.2) mmol/L Calcium (8.6-10.3) mg/dL Phosphorus 3.6 (2.7-4.5) mg/dL Magnesium 1.5 L (1.6-2.6) mg/dL Total Bilirubin 0.7 (0.3-1.0) mg/dL Direct Bilirubin 0.1 (0.0-0.2) mg/dL Indirect Bilirubin 0.6 (0.0-1.2) mg/dL AST 18 (13-39) Units/L ALT 16 (7-52) Units/L Alkaline Phosphatase 59 (34-104) Units/L Troponin I 0.04 H* (< 0.04) ng/mL Serum Total Protein 7.0 (6.4-8.9) g/dL Albumin 4.2 (3.5-5.7) g/dL Globulin 2.8 (2.4-3.5) g/dL Albumin/Globulin Ratio 1.5 (1.1-2.2) Urine Color (Yellow) Urine Clarity (Clear) Urine pH (5.0-8.0) pH Units Ur Specific [place] (1.010-1.025) Urine Protein (Neg-Trace) mg/dL Urine Glucose (UA) (Normal) mg/dL Urine Ketones (Negative) mg/dL Urine Blood (Negative) Urine Nitrite (Negative) Urine Bilirubin (Negative) Urine Urobilinogen (Normal) mg/dL Ur Leukocyte Esterase (Negative) 12/14/18 Range/Units 04:42 WBC (4.3-11.1) K/mcL RBC (4.19-5.50) M/mcL Hgb (12.9-16.9) g/dL Hct (37.5-50.1) % MCV (83.0-100.0) fL MCH (28.0-33.3) pg MCHC (31.6-35.5) g/dL RDW (11.5-14.5) % Plt Count (140-400) K/mcL MPV (9.4-12.4) fL Immature Gran % (0-4) % Seg Neutrophils % % Lymphocytes % % Monocytes % % Eosinophils % % Basophils % % Neutrophils # (1.6-8.9) K/mcL Lymphocytes # (0.6-4.6) K/mcL Monocytes # (0.0-1.3) K/mcL Eosinophils # (0.0-0.6) K/mcL Basophils # (0.0-0.2) K/mcL PT (9.4-12.1) Seconds INR APTT (26.0-36.0) Seconds ABG pH (7.32-7.45) pH Units ABG pCO2 (35-45) mmHg ABG pO2 (85-104) mmHg ABG HCO3 (21-27) mEq/L ABG Total CO2 (20-26) mEq/L ABG O2 Saturation (95-98) % ABG Base Excess (-2 to 3) mEq/L O2 Delivery Device Inspired O2 (1-15=lpm [id number]=%) Sodium (136-145) mEq/L Potassium (3.5-5.1) mEq/L Chloride (98-107) mEq/L Carbon Dioxide (23-29) mEq/L BUN (6-20) mg/dL Creatinine (0.70-1.30) mg/dL Est GFR ( Amer) (> 60) Est GFR (Non-Af Amer) (> 60) BUN/Creatinine Ratio (6-26) Glucose (70-105) mg/dL Calculated Osmolality (280-300) Lactic Acid (0.5-2.2) mmol/L Calcium (8.6-10.3) mg/dL Phosphorus (2.7-4.5) mg/dL Magnesium (1.6-2.6) mg/dL Total Bilirubin (0.3-1.0) mg/dL Direct Bilirubin (0.0-0.2) mg/dL Indirect Bilirubin (0.0-1.2) mg/dL AST (13-39) Units/L ALT (7-52) Units/L Alkaline Phosphatase (34-104) Units/L Troponin I (< 0.04) ng/mL Serum Total Protein (6.4-8.9) g/dL Albumin (3.5-5.7) g/dL Globulin (2.4-3.5) g/dL Albumin/Globulin Ratio (1.1-2.2) Urine Color Yellow (Yellow) Urine Clarity Clear (Clear) Urine pH 5.5 (5.0-8.0) pH Units Ur Specific [place] 1.017 (1.010-1.025) Urine Protein Negative (Neg-Trace) mg/dL Urine Glucose (UA) 250 H (Normal) mg/dL Urine Ketones Negative (Negative) mg/dL Urine Blood Negative (Negative) Urine Nitrite Negative (Negative) Urine Bilirubin Negative (Negative) Urine Urobilinogen Normal (Normal) mg/dL Ur Leukocyte Esterase Negative (Negative) - Radiology Data Radiology results reviewed: Yes I reviewed the patient's radiology results. - EKG Data EKG attestation: Yes I reviewed and interpreted this EKG. EKG results narrative: EKG shows a normal sinus rhythm 95 bpm normal intervals and left axis deviation no acute ST elevations. Critical Care Time Critical Care Time: Yes Total Critical Care Time: 30 Attestation: The high probability of a clinically significant, sudden or life threatening deterioration of the patient's condition required my full and direct attention, intervention and personal management.
--- NOTE | 2018-12-14 07:46 | Internal Med History&Physical ---
Date of Encounter: 12/14/18 Time of Encounter: 07:44 Internal Medicine - H&P: HPI Chief complaint: SOB Admitted From: Emergency Dept History of present illness: Tim De Oliveira is a 53 M w hx HFrEF 35%, HTN, DM2, SWAPNIL, morbid obesity, who p/w SOB. Began 4-5 days ago. Associated with cough and general malaise. Went to urgent care a few days ago for SOB and cough for which he was given azithro without improvement, and saw his PCP yesterday for regular appt and was placed on codeine cough syrup. However, last night he began to spike a fever and have sweats and developed nausea and vomited x1 so came to ED. He has been hospitalized before for CHF and says he has not had any of the swelling or weight gain that he did then. Denies CP. In the ED, vitals T 100.3, HR 100s, RR 20s, SBP 120-140s, satting 90% RA and 96% on 2L. Labs notable for WBC 14, Hb 13, HCO3 32, BUN 35, Cr 1.2, BG 220, Lactate 2.2, Mg 1.5, trop 0.04. Urine unremarkable. ABG shows pCO2 51. CXR w bibasilar infiltrates v edema, and CT shows bibasilar pneumonia. Cultures obtained, given NS 1L and doses of Rocephin and Levaquin, and admitted. Past medical, surgical, social, and family histories reviewed and updated as below. Past Med Surg Social Fam HX - Past Medical History Medical history: diabetes, hypertension Psychiatric history: no psych history - Past Surgical History Surgical History: non-contributory Additional surgical history: heart cath - Social History Smoking Status: Never smoker Smokeless Tobacco Status: No Alcohol use: none Drug use: none - Family History Mother Hx Family Cardiac Disorders: Yes ([place] heart transplant) Hx Family Endocrine Disorder: Yes Hx Family Neurologic Disorders: Yes (CVA) Father Hx Family Endocrine Disorder: Yes Internal Medicine - H&P: Meds Lisinopril [Zestril] 10 mg PO DAILY 04/10/16 [History] Metformin HCl [Glucophage] 1,000 mg PO BID 05/23/16 [History] Atorvastatin Calcium [Lipitor] 80 mg PO HS 03/03/17 [History] Carvedilol 12.5 mg PO BID 03/03/17 [History] Fenofibrate [Tricor] 54 mg PO DAILY 03/03/17 [History] Spironolactone [Aldactone] 12.5 mg PO DAILY 03/03/17 [History] Furosemide [Lasix] 40 mg PO BID #30 tab 03/04/17 [Rx] Insulin Glargine [Lantus] 0 unit 12/14/18 [History] Insulin LISPRO [HumaLOG] 0 units SQ TIDWM 12/14/18 [History] Allergy/AdvReac Type Severity Reaction Status Date / Time coconut AdvReac Hives Verified 12/14/18 02:55 All Systems PM: A 10-system review of systems was performed and is negative for pertinent findings except as documented above in the HPI. - Constitutional Vitals: Temp Pulse Resp BP Pulse Ox 100.3 F H 81 20 124/68 95 12/14/18 02:53 12/14/18 06:22 12/14/18 06:22 12/14/18 06:22 12/14/18 06:22 Exam: General: NAD, good eye contact, well appearing, obese, diaphoretic Head: Atraumatic, normocephalic. Face symmetric Eyes: EOMI, sclerae anicteric ENT: Mucous membranes dry. Normal oral mucosa and dentition. Trachea midline. Thoracic: No visible chest wall deformities. Coarse biphasic breath sounds b/l bases, no wheezing Cardio: Normal S1 and S2, regular rate and rhythm Abdomen: Soft, nontender, nondistended, obese Extremities: Warm, well perfused. DP pulses 2+ b/l. No clubbing, cyanosis. No edema Skin: Intact. No rashes, bruises, or ulcers Neuro: Awake, fully oriented. Good memory, concentration, attention. Speech fluent. CN II-XII grossly intact. Strength 5/5 in b/l UE and LE Internal Med - H&P Results - Labs CBC & Chem 7: 12/14/18 03:12 12/14/18 03:12 Labs: Short CBC 12/14/18 Range/Units 03:12 WBC 14.0 H (4.3-11.1) K/mcL Hgb 12.9 (12.9-16.9) g/dL Hct 39.8 (37.5-50.1) % Plt Count 186 (140-400) K/mcL Neutrophils # 11.8 H (1.6-8.9) K/mcL BMP 12/14/18 03:12 Sodium 135 L Potassium 3.7 Chloride 92 L Carbon Dioxide 32 H BUN 35 H Creatinine 1.17 Glucose 222 H Calcium 9.7 Cardiac Enzymes 12/14/18 Range/Units 03:13 Troponin I 0.04 H* (< 0.04) ng/mL Liver Function 12/14/18 Range/Units 03:13 Total Bilirubin 0.7 (0.3-1.0) mg/dL Direct Bilirubin 0.1 (0.0-0.2) mg/dL AST 18 (13-39) Units/L ALT 16 (7-52) Units/L Alkaline Phosphatase 59 (34-104) Units/L Albumin 4.2 (3.5-5.7) g/dL Urine 12/14/18 Range/Units 04:42 Urine Color Yellow (Yellow) Urine Clarity Clear (Clear) Urine pH 5.5 (5.0-8.0) pH Units Ur Specific [place] 1.017 (1.010-1.025) Urine Protein Negative (Neg-Trace) mg/dL Urine Glucose (UA) 250 H (Normal) mg/dL - ABG Interpretation ABG results: 12/14/18 03:32 ABG pH 7.44 ABG pCO2 51 H ABG pO2 73 L ABG HCO3 35 H ABG Total CO2 37 H ABG O2 Saturation 95 ABG Base Excess 9 H - Impressions ITS Impressions Chest X-Ray 12/14/18 03:14 IMPRESSION: Volume overload versus bronchitis. D/ / Elbert Mello / Elbert Mello Interpreting Provider: Elbert Mello Chest CTA 12/14/18 04:19 IMPRESSION: Bilateral lower lobe pneumonia. Reactive mediastinal lymphadenopathy. No pulmonary embolism. D/ / Elbert Mello / Elbert Mello Interpreting Provider: Elbert Mello - Summary of Assessment and Plan Summary of Assessment and Plan: Tim De Oliveira is a 53 M w hx HFrEF 35%, HTN, DM2, SWAPNIL, morbid obesity, Bibasilar PNA: seen on CXR, s/p rocephin and levaquin and solumedrol in ED - UAg's, procal - empiric levaquin 750 daily - IS, acapella, mucinex Sepsis: SIRS 4/, suspected PNA as above, lactate 2.2 improved to 1 w fluids - BCx x2 pending - fluid boluses prn - empiric abx as above Hypomagnesemia: replace and monitor Hypokalemia: replace and monitor HFrEF 35%: home ACEi, jin; holding home lasix 40 bid for now DM2: uncontrolled, w hyperglycemia, home basal SWAPNIL: CPAP qhs Morbid obesity: BMI 45 PPx: lovenox Tele: no Activity: up ad suze FEN: cardiac ADA 1.5L, no MIVF Lines: PIV Consults: Code: Full Dispo: obs for PNA and sepsis, anticipate 1-2 days, will be homegoing
[2018-12-14] MEDS ORDERED: Acetaminophen 325 MG TABLET PO PRN (09:16)
[2018-12-14] MEDS ORDERED: Ondansetron 4 MG/2 ML VIAL IVP PRN (09:16)
[2018-12-14] MEDS: Spironolactone 25 MG TABLET PO SCH (11:05)
[2018-12-14] MEDS ORDERED: D5% in Water 1,000 ML IVC PRN (11:13)
[2018-12-14] MEDS ORDERED: *HR* Dextrose 50 % in Water (Syg) 50 ML SYRINGE IVP PRN (11:13)
[2018-12-14] MEDS ORDERED: Dextrose Gel 15 GM/37.5 ML TUBE PO PRN ×2 (11:13)
[2018-12-14] MEDS: Insulin LISPRO 300 UNITS/3 ML VIAL SQ SCH ×2 (12:31→17:59)
[2018-12-14] MEDS ORDERED: Insulin DETEMIR 100 UNIT/ML X5UNITS SQ SCH (21:00)
[2018-12-14] MEDS ORDERED: Insulin LISPRO 300 UNITS/3 ML VIAL SQ SCH (21:00)
[2018-12-14] MEDS ORDERED: Albuterol 2.5 MG/3 ML NEBULIZER IH PRN (21:24)
[2018-12-15 05:50] LABS: Hematocrit 38.5 % (37.5-50.1); Mean Corpuscular HGB Conc 31.2 g/dL (31.6-35.5); Mean Corpuscular Hemoglobin 27.9 pg (28.0-33.3); Mean Corpuscular Volume 89.5 fL (83.0-100.0); Mean Platelet Volume 12.5 fL (9.4-12.4); Platelet Count 181 K/mcL (140-400); Red Cell Distribution Width 14.6 % (11.5-14.5); White Blood Count 13.3 K/mcL (4.3-11.1)
[2018-12-15] MEDS ORDERED: *HR* Enoxaparin 40 MG/0.4 ML SYRINGE SQ SCH (06:00)
[2018-12-15 06:19] LABS: BUN/Creatinine Ratio 36 (6-26); Blood Urea Nitrogen 43 mg/dL (6-20); Calcium 9.2 mg/dL (8.6-10.3); Carbon Dioxide 30 mEq/L (23-29); Chloride 94 mEq/L (98-107); Glucose 302 mg/dL (70-105); Magnesium 2.5 mg/dL (1.6-2.6); Osmolality,Calculated 296 (280-300); Potassium 4.8 mEq/L (3.5-5.1); Sodium 132 mEq/L (136-145); eGFR For African Americans > 60 (> 60); eGFR For Non-African Americans > 60 (> 60)
[2018-12-15] MEDS: Insulin LISPRO 300 UNITS/3 ML VIAL SQ SCH ×2 (07:43→11:47)
[2018-12-15] MEDS: Spironolactone 25 MG TABLET PO SCH (07:43)
[2018-12-15] MEDS ORDERED: levoFLOXacin 750 MG TABLET PO SCH (09:00)
[2018-12-15] MEDS ORDERED: Insulin DETEMIR 100 UNIT/ML X5UNITS SQ SCH (09:00)
[2018-12-15 11:36] VITALS: BP 119/71
--- NOTE | 2018-12-15 11:38 | Electrocardiograph Report ---
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
--- NOTE | 2018-12-15 12:45 | Discharge Summary ---
Orders not resulted at time of discharge: Pending orders 12/14/18 03:20 Culture,Blood [BC] Stat Date of Encounter: 12/15/18 Time of Encounter: 12:41 - Discharge Diagnosis (1) Pneumonia Priority: Primary Status: Acute Qualifiers: Pneumonia type: due to unspecified organism Laterality: bilateral Lung location: lower lobe of lung Qualified Code(s): J18.1 - Lobar pneumonia, unspecified organism (2) Chronic hypercapnic respiratory failure Priority: Secondary Status: Chronic (3) Morbid obesity Priority: Secondary Status: Chronic (4) SWAPNIL (obstructive sleep apnea) Priority: Secondary Status: Acute (5) Sepsis Priority: Secondary Status: Acute Qualifiers: Sepsis type: sepsis due to unspecified organism Sepsis acute organ dysfunction status: without acute organ dysfunction Qualified Code(s): A41.9 - Sepsis, unspecified organism (6) Congestive heart failure Priority: Secondary Status: Acute Qualifiers: Qualified Code(s): I50.43 - Acute on chronic combined systolic (congestive) and diastolic (congestive) heart failure (7) Diabetes Priority: Secondary Status: Chronic Qualifiers: Diabetes mellitus type: type 2 Diabetes mellitus detention insulin use: 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 De Oliveira is a 53 year old male with a PMHx HFrEF 35%, HTN, DM2, SWAPNIL, morbid obesity, who p/w SOB. He reported fever, sweats, nausea and vomiting. CXR in ED reveaed bibasilar infiltrates vs edema. Givent the clinical context, patient was started on Levaquin for bilateral interstitial pneumonia. He c urrently states that he feels much better and requested to be discharged on antibiotics to follow up with his primary doctor. Patient is surgery saturating normally on room air. His white cell count is draining down and his vitals remained stable. He will therefore be discharged on by mouth Levaquin to complete a course of 7 days and follow-up with PCP in the office. A walk test was performed which revealed that patient will not require home oxygen. Discharge discussed with: patient, nurse Time spent discussing smoking cessation with patient: more than 10 minutes - Time Spent with Patient Total time spent providing and/or coordinating discharge services: Time spent: Greater than 30 minutes (38) - Discharge Medications Prescriptions: New levoFLOXacin [Levaquin] 750 mg PO DAILY #5 tablet Continued Spironolactone [Aldactone] 12.5 mg PO DAILY Fenofibrate [Tricor] 54 mg PO DAILY Atorvastatin Calcium [Lipitor] 80 mg PO HS Insulin LISPRO [HumaLOG] 15 units SQ TIDWM Albuterol Neb [Proventil Neb] 2.5 mg IH Q4-6H PRN PRN Reason: Shortness Of Breath Albuterol Sulfate [Albuterol Sulfate Hfa] 2 puff PO Q4H PRN PRN Reason: Shortness Of Breath Carvedilol [Coreg] 25 mg PO BID Insulin Glargine,Hum.rec.anlog [Lantus Solostar] 45 units SQ HS Lisinopril [Zestril] 10 mg PO DAILY Metformin HCl 1,000 mg PO BID Home Medications: Atorvastatin Calcium [Lipitor] 80 mg PO HS 03/03/17 [History] Fenofibrate [Tricor] 54 mg PO DAILY 03/03/17 [History] Spironolactone [Aldactone] 12.5 mg PO DAILY 03/03/17 [History] Albuterol Neb [Proventil Neb] 2.5 mg IH Q4-6H PRN 12/14/18 [History] Albuterol Sulfate [Albuterol Sulfate Hfa] 2 puff PO Q4H PRN 12/14/18 [History] Carvedilol [Coreg] 25 mg PO BID 12/14/18 [History] Insulin Glargine,Hum.rec.anlog [Lantus Solostar] 45 units SQ HS 12/14/18 [History] Insulin LISPRO [HumaLOG] 15 units SQ TIDWM 12/14/18 [History] Lisinopril [Zestril] 10 mg PO DAILY 12/14/18 [History] Metformin HCl 1,000 mg PO BID 12/14/18 [History] levoFLOXacin [Levaquin] 750 mg PO DAILY #5 tablet 12/15/18 [Rx] Allergies/Adverse Reactions: Allergy/AdvReac Type Severity Reaction Status Date / Time coconut AdvReac Hives Verified 12/14/18 02:55 Date of admission: 12/14/18 06:51 Primary care physician: Kayden Elizondo DO Consults: 12/14/18 09:18 Consult to Nurse Navigator [CONS] Routine Comment: pn copd - Constitutional Vitals: Temp Pulse Resp BP Pulse Ox 36.6 C 68 18 119/71 95 12/15/18 11:32 12/15/18 11:32 12/15/18 11:32 12/15/18 11:32 12/15/18 11:56 Exam: GENERAL: Not in distress. Alert and Oriented HEENT: EOMI, PERRLA MOUTH: Moist oral mucosa NECK:No JVD, No lymph nodes. CHEST AND LUNGS: Normal breath sounds, no wheezes or crackles HEART: S1 and S2 normal, no murmurs ABDOMEN: Soft, nontender, no organomegaly SKIN: Normal color, no rahses, no lesions EXTREMITIES: No deformity, no edema, no tenderness, no joint swelling or clubbing NEUROLOGICAL: Normal cognition, normal motor and sensory exam. - Patient Status Disposition: Home, Self-Care Condition: Fair Functional capacity at discharge: independent ambulation Overall status at discharge: patient is progressing back to baseline - Discharge Instructions Follow Up With: Kayden Elizondo DO [Primary Care Provider] - - Diet and Activity Activity: resume usual activities as tolerated Diet: advance to your usual diet, diabetic diet, low salt diet
== END 2018-12-15 13:51 | disposition home or self-care (01) ==
LOC: 2ANU 02:52 → EMEROOARM 02:52 → SUATTDRO 06:51 → 2ANU 08:30
PROVIDERS: ADMIT Internal Medicine; ATTEND Internal Medicine

== ENCOUNTER 2020-01-15 14:21 | Observation (INO) ==
[2020-01-15] MEDS ORDERED: Furosemide 40 MG/4 ML VIAL IVP ONE (14:50)
[2020-01-15 15:06] LABS: Basophils % 0.5 %; Eosinophils # 0.1 K/mcL (0.0-0.6); Eosinophils % 0.8 %; Hematocrit 36.6 % (37.5-50.1); Hemoglobin 11.5 g/dL (12.9-16.9); Immature Granulocytes % 0.5 % (0-4); Lymphocytes % 11.3 %; Mean Corpuscular HGB Conc 31.4 g/dL (31.6-35.5); Mean Corpuscular Hemoglobin 28.4 pg (28.0-33.3); Mean Corpuscular Volume 90.4 fL (83.0-100.0); Mean Platelet Volume 12.8 fL (9.4-12.4); Monocytes # 0.6 K/mcL (0.0-1.3); Monocytes % 6.5 %; Neutrophils # 6.9 K/mcL (1.6-8.9); Platelet Count 144 K/mcL (140-400); Red Blood Count 4.05 M/mcL (4.19-5.50); Red Cell Distribution Width 14.7 % (11.5-14.5); Segmented Neutrophils % 80.4 %; White Blood Count 8.6 K/mcL (4.3-11.1)
[2020-01-15 16:21] LABS: Troponin I 0.03 ng/mL (< 0.04)
[2020-01-15 16:24] LABS: Calcium 9.2 mg/dL (8.6-10.3)
[2020-01-15] MEDS ORDERED: Naloxone 0.4 MG/ML INJ IVP PRN (17:13)
[2020-01-15] MEDS ORDERED: Dextrose Gel 15 GM/37.5 ML TUBE PO PRN ×2 (17:16)
[2020-01-15] MEDS ORDERED: D5% in Water 1,000 ML IVC PRN (17:16)
[2020-01-15] MEDS ORDERED: *HR* Dextrose 50 % in Water (Vial) 50 ML VIAL IVP PRN (17:16)
[2020-01-15] MEDS: Insulin DETEMIR 100 UNIT/ML X5UNITS SQ SCH (21:16)
[2020-01-15] MEDS: carvediloL 25 MG TABLET PO SCH (21:17)
[2020-01-16 02:54] LABS: Hemoglobin 10.5 g/dL (12.9-16.9); Red Cell Distribution Width 14.7 % (11.5-14.5)
[2020-01-16 02:56] LABS: Basophils % 0.4 %; Eosinophils # 0.1 K/mcL (0.0-0.6); Eosinophils % 0.9 %; Hematocrit 33.1 % (37.5-50.1); Immature Granulocytes % 0.5 % (0-4); Immature Platelets 11.9 % (1.1-6.1); Lymphocytes # 0.9 K/mcL (0.6-4.6); Lymphocytes % 11.4 %; Mean Corpuscular HGB Conc 31.7 g/dL (31.6-35.5); Mean Corpuscular Hemoglobin 28.8 pg (28.0-33.3); Mean Corpuscular Volume 90.9 fL (83.0-100.0); Mean Platelet Volume 13.1 fL (9.4-12.4); Monocytes # 0.6 K/mcL (0.0-1.3); Monocytes % 6.8 %; Neutrophils # 6.6 K/mcL (1.6-8.9); Platelet Count 148 K/mcL (140-400); Red Blood Count 3.64 M/mcL (4.19-5.50); White Blood Count 8.2 K/mcL (4.3-11.1)
[2020-01-16 03:06] LABS: BUN/Creatinine Ratio 22 (6-26); Blood Urea Nitrogen 32 mg/dL (6-20); Calcium 8.9 mg/dL (8.6-10.3); Carbon Dioxide 27 mEq/L (23-29); Chloride 96 mEq/L (98-107); Glucose 256 mg/dL (70-105); Osmolality,Calculated 288 (280-300); Potassium 4.2 mEq/L (3.5-5.1); Sodium 131 mEq/L (136-145); eGFR For African Americans > 60 (> 60); eGFR For Non-African Americans 52 (> 60)
[2020-01-16] MEDS: Insulin LISPRO 300 UNITS/3 ML VIAL SQ SCH ×6 (08:25→16:57)
[2020-01-16] MEDS: Spironolactone 25 MG TABLET PO SCH (08:25)
[2020-01-16] MEDS: Furosemide 40 MG/4 ML VIAL IVP SCH ×2 (08:26→21:37)
[2020-01-16] MEDS: carvediloL 25 MG TABLET PO SCH ×2 (08:26→16:55)
[2020-01-16] MEDS: lisinopriL 10 MG TABLET PO SCH (08:26)
[2020-01-16] MEDS: Fenofibrate 54 MG TABLET PO SCH (08:26)
[2020-01-16] MEDS: Insulin DETEMIR 100 UNIT/ML X5UNITS SQ SCH (21:37)
[2020-01-17 07:52] VITALS: BP 118/70
[2020-01-17] MEDS: Insulin LISPRO 300 UNITS/3 ML VIAL SQ SCH ×2 (08:00→08:06)
[2020-01-17] MEDS: Spironolactone 25 MG TABLET PO SCH (08:00)
[2020-01-17] MEDS: Furosemide 40 MG/4 ML VIAL IVP SCH (08:00)
[2020-01-17] MEDS: carvediloL 25 MG TABLET PO SCH (08:01)
[2020-01-17] MEDS: Fenofibrate 54 MG TABLET PO SCH (08:01)
[2020-01-17] MEDS: lisinopriL 10 MG TABLET PO SCH (08:01)
[2020-01-17 09:13] LABS: BUN/Creatinine Ratio 27 (6-26); Blood Urea Nitrogen 31 mg/dL (6-20); Calcium 9.1 mg/dL (8.6-10.3); Carbon Dioxide 29 mEq/L (23-29); Chloride 97 mEq/L (98-107); Glucose 160 mg/dL (70-105); Osmolality,Calculated 292 (280-300); Phosphorous 3.5 mg/dL (2.7-4.5); Potassium 3.8 mEq/L (3.5-5.1); Sodium 136 mEq/L (136-145); eGFR For African Americans > 60 (> 60); eGFR For Non-African Americans > 60 (> 60)
== END 2020-01-17 11:34 | disposition home or self-care (01) ==
LOC: 3BNU 14:21 → EMEROOARM 14:21 → SUATTDRO 17:52 → 3BNU 18:14
PROVIDERS: ADMIT Internal Medicine; ATTEND Internal Medicine

== ENCOUNTER 2021-08-08 16:21 | Inpatient (IN) ==
[2021-08-08] MEDS ORDERED: Furosemide 40 MG/4 ML VIAL IVP ONE (16:53)
[2021-08-08] MEDS ORDERED: Nitroglycerin 0.4 MG TAB.SUBL SL STA (16:53)
[2021-08-08 17:02] LABS: Basophils # 0.1 K/mcL (0.0-0.2); Basophils % 0.4 %; Eosinophils % 0.1 %; Hematocrit 37.8 % (37.5-50.1); Hemoglobin 11.8 g/dL (12.9-16.9); Immature Granulocytes % 0.4 % (0-4); Lymphocytes # 1.2 K/mcL (0.6-4.6); Lymphocytes % 8.2 %; Mean Corpuscular HGB Conc 31.2 g/dL (31.6-35.5); Mean Corpuscular Hemoglobin 27.5 pg (28.0-33.3); Mean Corpuscular Volume 88.1 fL (83.0-100.0); Mean Platelet Volume 11.9 fL (9.4-12.4); Monocytes # 1.2 K/mcL (0.0-1.3); Monocytes % 8.4 %; Neutrophils # 11.7 K/mcL (1.6-8.9); Platelet Count 196 K/mcL (140-400); Red Blood Count 4.29 M/mcL (4.19-5.50); Red Cell Distribution Width 14.6 % (11.5-14.5); Segmented Neutrophils % 82.5 %; White Blood Count 14.1 K/mcL (4.3-11.1)
[2021-08-08 17:25] LABS: BUN/Creatinine Ratio 23 (6-26); Blood Urea Nitrogen 31 mg/dL (6-20); Calcium 9.7 mg/dL (8.6-10.3); Carbon Dioxide 28 mEq/L (23-29); Chloride 94 mEq/L (98-107); Glucose 233 mg/dL (70-105); Osmolality,Calculated 282 (280-300); Sodium 129 mEq/L (136-145); Troponin I 0.03 ng/mL (< 0.04); eGFR For African Americans > 60 (> 60); eGFR For Non-African Americans 56 (> 60)
[2021-08-08] MEDS ORDERED: D5% in Water 1,000 ML IVC PRN (19:34)
[2021-08-08] MEDS ORDERED: Naloxone 0.4 MG/ML INJ IVP PRN ×2 (19:34→19:50)
[2021-08-08] MEDS ORDERED: *HR* Dextrose 50 % in Water (Syg) 50 ML SYRINGE IVP PRN (19:34)
[2021-08-08] MEDS ORDERED: Dextrose 4 GM Chewable Tablets PO PRN ×2 (19:34)
[2021-08-08 19:52] LABS: Influenza A PCR Negative (Negative); Influenza B PCR Negative (Negative); Resp. Syncytial Virus PCR Negative (Negative)
[2021-08-08 19:53] LABS: SARS-CoV-2 by PCR (In House) Negative (Negative)
[2021-08-08] MEDS: *HR* Heparin 5,000 UNIT/ML VIAL SQ SCH (20:52)
[2021-08-08] MEDS: Benzonatate 100 MG CAPSULE PO PRN (20:53)
[2021-08-08] MEDS ORDERED: Perflutren Lipid Microsphere 1.3 ML in 0.9 % Sodium Chloride 8.7 ML IVP PRN (20:59)
[2021-08-08] MEDS ORDERED: Insulin DETEMIR 100 UNIT/ML X5UNITS SUBQ SCH (21:00)
[2021-08-08] MEDS: Insulin DETEMIR 100 UNIT/ML X5UNITS SUBQ SCH (21:44)
[2021-08-08] MEDS: carvediloL 25 MG TABLET PO SCH (21:45)
[2021-08-08] MEDS: Ipratropium/Albuterol Neb 3 ML IH SCH ×2 (21:49→23:38)
[2021-08-09] MEDS: Ipratropium/Albuterol Neb 3 ML IH SCH ×6 (03:55→23:59)
[2021-08-09] MEDS: *HR* Heparin 5,000 UNIT/ML VIAL SQ SCH ×3 (05:22→20:14)
[2021-08-09] MEDS: GuaiFENesin/Dextromethorphan TABLET PO PRN ×2 (05:25→17:50)
[2021-08-09] MEDS ORDERED: Insulin LISPRO 300 UNITS/3 ML VIAL SUBQ SCH ×2 (07:30→08:00)
[2021-08-09 08:06] LABS: Basophils % 0.3 %; Eosinophils # 0.1 K/mcL (0.0-0.6); Eosinophils % 0.8 %; Hematocrit 36.6 % (37.5-50.1); Hemoglobin 11.8 g/dL (12.9-16.9); Immature Granulocytes % 0.6 % (0-4); Lymphocytes # 0.8 K/mcL (0.6-4.6); Lymphocytes % 6.1 %; Mean Corpuscular HGB Conc 32.2 g/dL (31.6-35.5); Mean Corpuscular Hemoglobin 28.2 pg (28.0-33.3); Mean Corpuscular Volume 87.4 fL (83.0-100.0); Mean Platelet Volume 11.3 fL (9.4-12.4); Monocytes # 1.2 K/mcL (0.0-1.3); Monocytes % 9.9 %; Neutrophils # 10.4 K/mcL (1.6-8.9); Platelet Count 176 K/mcL (140-400); Red Blood Count 4.19 M/mcL (4.19-5.50); Red Cell Distribution Width 14.4 % (11.5-14.5); Segmented Neutrophils % 82.3 %; White Blood Count 12.6 K/mcL (4.3-11.1)
[2021-08-09 08:27] LABS: BUN/Creatinine Ratio 26 (6-26); Blood Urea Nitrogen 37 mg/dL (6-20); Calcium 9.5 mg/dL (8.6-10.3); Carbon Dioxide 28 mEq/L (23-29); Chloride 93 mEq/L (98-107); Chol/HDL Ratio 3.8 (0-4.9); Cholesterol 138 mg/dL (< 200); Glucose 226 mg/dL (70-105); HDL Cholesterol 36 mg/dL (40-59); LDL Cholesterol,Calculated 70 mg/dL (< 100); Osmolality,Calculated 282 (280-300); Potassium 5.1 mEq/L (3.5-5.1); Sodium 128 mEq/L (136-145); Triglycerides 161 mg/dL (< 150); eGFR For African Americans > 60 (> 60); eGFR For Non-African Americans 53 (> 60)
[2021-08-09] MEDS: Albumin 25% 25gram/100mL 25 GM/100 ML IV.SOLN IVPB SCH ×3 (08:30→23:51)
[2021-08-09] MEDS: predniSONE 20 MG TABLET PO SCH (08:32)
[2021-08-09] MEDS: Spironolactone 25 MG TABLET PO SCH (08:32)
[2021-08-09] MEDS: carvediloL 25 MG TABLET PO SCH ×2 (08:32→18:01)
[2021-08-09] MEDS: Insulin DETEMIR 100 UNIT/ML X5UNITS SUBQ SCH ×2 (08:33→20:25)
[2021-08-09] MEDS: Insulin LISPRO 300 UNITS/3 ML VIAL SUBQ SCH ×5 (08:34→18:02)
[2021-08-09] MEDS ORDERED: lisinopriL 10 MG TABLET PO SCH (09:00)
[2021-08-09] MEDS ORDERED: Furosemide 20 MG/2 ML VIAL IVP SCH (09:00)
[2021-08-09 09:25] LABS: Estimated Average Glucose 169 mg/dl; Hemoglobin A1C 7.5 %
[2021-08-09 15:37] LABS: ABG Base Excess 2 mEq/L (-2 to 3); ABG HCO3 31 mEq/L (21-27); ABG Oxygen Saturation 100 % (95-98); ABG PCO2 71 mmHg (35-45); ABG PH 7.25 pH Units (7.32-7.45); ABG PO2 283 mmHg (85-104); ABG TCO2 33 mEq/L (20-26); Blood Gas Modality ASSIST CONTROL
[2021-08-09] MEDS ORDERED: Furosemide 40 MG/4 ML VIAL ONE (17:31)
[2021-08-09] MEDS: Benzonatate 100 MG CAPSULE PO PRN (20:25)
[2021-08-09] MEDS: Acetaminophen 325 MG TABLET PO PRN (20:25)
[2021-08-09] MEDS ORDERED: Furosemide 40 MG/4 ML VIAL IVP SCH (21:00)
[2021-08-10 00:05] LABS: Sodium, Urine 17.2 mEq/L
[2021-08-10 00:20] LABS: Bacteria,Urine Few per hpf (None-Few); Bilirubin,Urine Negative (Negative); Blood,Urine Small (Negative); Clarity,Urine Turbid (Clear); Color,Urine Yellow (Yellow); Glucose,Urine (UA) Normal (Normal); Hyaline Casts,Urine Few per lpf (None Seen); Ketones,Urine Negative (Negative); Leukocyte Esterase,Urine Negative (Negative); Mucus,Urine Few per lpf (None-Few); Nitrite,Urine Negative (Negative); Protein,Urine 50 mg/dL (Neg-Trace); RBC,Urine 15-30 per hpf (0-3); Squamous Epithelial Cell,Urine Few per hpf (None-Few); WBC,Urine 0-3 per hpf (0-3)
[2021-08-10 02:08] LABS: Hematocrit 34.2 % (37.5-50.1); Hemoglobin 10.8 g/dL (12.9-16.9); Mean Corpuscular HGB Conc 31.6 g/dL (31.6-35.5); Mean Corpuscular Hemoglobin 28.1 pg (28.0-33.3); Mean Corpuscular Volume 89.1 fL (83.0-100.0); Mean Platelet Volume 11.6 fL (9.4-12.4); Platelet Count 172 K/mcL (140-400); Red Blood Count 3.84 M/mcL (4.19-5.50); Red Cell Distribution Width 14.5 % (11.5-14.5); White Blood Count 10.9 K/mcL (4.3-11.1)
[2021-08-10 02:25] LABS: Calcium 9.5 mg/dL (8.6-10.3); Potassium 5.2 mEq/L (3.5-5.1)
[2021-08-10 03:17] LABS: Lymphocytes # 1.1 K/mcL (0.6-4.6); Monocytes # 0.7 K/mcL (0.0-1.3); Neutrophils # 9.2 K/mcL (1.6-8.9)
[2021-08-10] MEDS: Ipratropium/Albuterol Neb 3 ML IH SCH ×6 (03:58→23:11)
[2021-08-10 04:18] LABS: ABG Base Excess -1 mEq/L (-2 to 3); ABG HCO3 26 mEq/L (21-27); ABG Oxygen Saturation 96 % (95-98); ABG PCO2 47 mmHg (35-45); ABG PH 7.34 pH Units (7.32-7.45); ABG PO2 89 mmHg (85-104); ABG TCO2 27 mEq/L (20-26)
[2021-08-10] MEDS: Acetaminophen 325 MG TABLET PO PRN (04:52)
[2021-08-10] MEDS: *HR* Heparin 5,000 UNIT/ML VIAL SQ SCH ×3 (04:52→21:06)
[2021-08-10] MEDS ORDERED: Albumin 25% 25gram/100mL 25 GM/100 ML IV.SOLN IVPB SCH (08:00)
[2021-08-10] MEDS: SODIUM ZIRCONIUM CYCLOSILICATE 5 GM POWD.PACK PO SCH ×3 (08:10→21:06)
[2021-08-10] MEDS: carvediloL 25 MG TABLET PO SCH ×2 (08:10→15:16)
[2021-08-10] MEDS: Spironolactone 25 MG TABLET PO SCH (08:10)
[2021-08-10] MEDS: predniSONE 20 MG TABLET PO SCH (08:10)
[2021-08-10] MEDS: Insulin LISPRO 300 UNITS/3 ML VIAL SUBQ SCH ×6 (08:19→16:53)
[2021-08-10] MEDS: Insulin DETEMIR 100 UNIT/ML X5UNITS SUBQ SCH ×2 (08:28→21:06)
[2021-08-10 10:17] LABS: Phosphorous 3.5 mg/dL (2.7-4.5); Uric Acid 10.9 mg/dL (2.3-7.6)
[2021-08-10] MEDS: Azithromycin 500 MG in 0.9 % Sodium Chloride 250 ML IVPB SCH (11:51)
[2021-08-10] MEDS: Ondansetron ODT 4 MG TAB.RAPDIS SL PRN (11:51)
[2021-08-10] MEDS: cefTRIAXone 1,000 MG in 0.9 % Sodium Chloride 10 ML IVP SCH (11:51)
[2021-08-10 21:53] LABS: Protein/Creatinine Ratio,Urine 0.48 mg/mg (0.00-0.20)
[2021-08-11] MEDS: Benzonatate 100 MG CAPSULE PO PRN ×2 (00:56→17:02)
[2021-08-11] MEDS: Ipratropium/Albuterol Neb 3 ML IH SCH ×6 (03:14→23:20)
[2021-08-11] MEDS ORDERED: 0.9 % Sodium Chloride 250 ML IVC ONE ×2 (04:10→06:44)
[2021-08-11] MEDS ORDERED: 0.9 % Sodium Chloride 250 ML ONE (04:15)
[2021-08-11 04:24] LABS: Albumin 3.7 g/dL (3.5-5.7); Albumin/Globulin Ratio 1.1 (1.1-2.2); Bilirubin,Total 0.9 mg/dL (0.3-1.0); Calcium 8.8 mg/dL (8.6-10.3); Globulin 3.4 g/dL (2.4-3.5); Potassium 4.5 mEq/L (3.5-5.1); Total Protein 7.1 g/dL (6.4-8.9)
[2021-08-11] MEDS: *HR* Heparin 5,000 UNIT/ML VIAL SQ SCH ×3 (04:45→20:45)
[2021-08-11] MEDS: carvediloL 25 MG TABLET PO SCH (07:13)
[2021-08-11] MEDS: cefTRIAXone 1,000 MG in 0.9 % Sodium Chloride 10 ML IVP SCH (08:46)
[2021-08-11] MEDS: Insulin LISPRO 300 UNITS/3 ML VIAL SUBQ SCH ×7 (09:43→17:58)
[2021-08-11] MEDS: Insulin DETEMIR 100 UNIT/ML X5UNITS SUBQ SCH ×2 (09:43→20:43)
[2021-08-11] MEDS: predniSONE 20 MG TABLET PO SCH (10:53)
[2021-08-11] MEDS: Azithromycin 500 MG in 0.9 % Sodium Chloride 250 ML IVPB SCH (10:54)
[2021-08-11] MEDS: *HR* HYDROcodone/Acet 5/325 mg TABLET PO PRN ×2 (11:25→17:02)
[2021-08-11] MEDS: Norepinephrine 4 MG/254 ML IV.SOLN IVC SCH ×2 (12:39→20:00)
[2021-08-11 12:57] LABS: Complement C3 139 mg/dL (87-200)
[2021-08-11] MEDS ORDERED: *HR* Alteplase (Cathflo) 2 MG VIAL IVP PRN (12:58)
[2021-08-11] MEDS ORDERED: Calcium Gluconate 1gm/50mL 1 GM/50 ML BAG IVPB PRN (12:58)
[2021-08-11] MEDS ORDERED: *HR* Heparin 5,000 UNIT/ML VIAL IVP PRN (12:58)
[2021-08-11] MEDS ORDERED: 0.9 % Sodium Chloride 1,000 ML PRIME ONE (12:58)
[2021-08-11] MEDS: PrismaSATE BGK 4/2.5 5,000 ML CRRT SCH ×6 (13:45→20:50)
[2021-08-11] MEDS: SODIUM CITRATE 500 ML CRRT SCH ×3 (13:50→22:45)
[2021-08-11] MEDS: 0.9 % Sodium Chloride 1,000 ML PRIME SCH ×9 (14:17→23:06)
[2021-08-11] MEDS: Calcium Chloride 4,000 MG in 0.9 % Sodium Chloride 1,000 ML CRRT SCH (15:29)
[2021-08-11] MEDS: DOBUTamine 1,000 MG/250 ML BAG IVC SCH (15:44)
[2021-08-11 16:29] LABS: INR 1.2; Prothrombin Time 13.9 Seconds (9.4-12.1)
[2021-08-11 16:31] LABS: Activated Partial Thrombo Time 25.9 Seconds (26.0-36.0)
[2021-08-11] MEDS: GuaiFENesin/Dextromethorphan TABLET PO PRN (17:02)
[2021-08-11] MEDS: carvediloL 6.25 MG TABLET PO SCH (17:02)
[2021-08-11 18:23] LABS: VBG Ionized Calcium 0.98 mmol/L (1.15-1.35)
[2021-08-11] MEDS: Calcium Gluconate 1gm/50mL 1 GM/50 ML BAG IVPB PRN ×2 (18:28→20:53)
[2021-08-11 20:23] LABS: VBG Ionized Calcium 1.08 mmol/L (1.15-1.35)
[2021-08-11] MEDS ORDERED: Albuterol 2.5 MG/3 ML NEBULIZER IH PRN (21:54)
[2021-08-11 22:35] LABS: VBG Ionized Calcium 1.11 mmol/L (1.15-1.35)
[2021-08-12] MEDS: PrismaSATE BGK 4/2.5 5,000 ML CRRT SCH ×10 (00:25→14:19)
[2021-08-12] MEDS: 0.9 % Sodium Chloride 1,000 ML PRIME SCH ×10 (01:52→14:23)
[2021-08-12] MEDS: *HR* HYDROcodone/Acet 5/325 mg TABLET PO PRN ×3 (01:53→23:21)
[2021-08-12] MEDS: Benzonatate 100 MG CAPSULE PO PRN ×3 (01:54→23:22)
[2021-08-12] MEDS: Ondansetron ODT 4 MG TAB.RAPDIS SL PRN (02:09)
[2021-08-12 02:48] LABS: VBG Ionized Calcium 1.09 mmol/L (1.15-1.35)
[2021-08-12] MEDS: SODIUM CITRATE 500 ML CRRT SCH ×4 (03:00→14:54)
[2021-08-12] MEDS: Ipratropium/Albuterol Neb 3 ML IH SCH ×6 (03:43→23:57)
[2021-08-12] MEDS ORDERED: Racepinephrine Neb 0.5 ML VIAL IH ONE (04:20)
[2021-08-12 04:24] LABS: VBG Ionized Calcium 1.07 mmol/L (1.15-1.35)
[2021-08-12 04:29] LABS: Basophils % 0.2 %; Hematocrit 32.4 % (37.5-50.1); Hemoglobin 9.9 g/dL (12.9-16.9); Immature Granulocytes % 1.8 % (0-4); Lymphocytes # 0.6 K/mcL (0.6-4.6); Mean Corpuscular HGB Conc 30.6 g/dL (31.6-35.5); Mean Corpuscular Hemoglobin 27.2 pg (28.0-33.3); Mean Platelet Volume 11.9 fL (9.4-12.4); Monocytes # 0.9 K/mcL (0.0-1.3); Neutrophils # 12.7 K/mcL (1.6-8.9); Platelet Count 213 K/mcL (140-400); Red Blood Count 3.64 M/mcL (4.19-5.50); Red Cell Distribution Width 14.4 % (11.5-14.5); White Blood Count 14.4 K/mcL (4.3-11.1)
[2021-08-12 04:39] LABS: Albumin 3.5 g/dL (3.5-5.7); Bilirubin,Direct 0.3 mg/dL (0.0-0.2); Bilirubin,Indirect 0.5 mg/dL (0.0-1.0); Bilirubin,Total 0.8 mg/dL (0.3-1.0); Calcium 8.9 mg/dL (8.6-10.3); Globulin 3.4 g/dL (2.4-3.5); Magnesium 2.2 mg/dL (1.6-2.6); Phosphorous 4.3 mg/dL (2.7-4.5); Potassium 4.7 mEq/L (3.5-5.1); Total Protein 6.9 g/dL (6.4-8.9)
[2021-08-12] MEDS: Norepinephrine 4 MG/254 ML IV.SOLN IVC SCH ×2 (05:00→18:49)
[2021-08-12 05:24] LABS: Platelet Estimate Normal (Normal)
[2021-08-12] MEDS: *HR* Heparin 5,000 UNIT/ML VIAL SQ SCH ×3 (05:40→21:06)
[2021-08-12] MEDS ORDERED: Calcium Gluconate 1gm/50mL 1 GM/50 ML BAG IVPB PRN (05:56)
[2021-08-12 06:29] LABS: VBG Ionized Calcium 1.14 mmol/L (1.15-1.35)
[2021-08-12] MEDS: Acetaminophen 325 MG TABLET PO PRN (08:50)
[2021-08-12] MEDS: Insulin LISPRO 300 UNITS/3 ML VIAL SUBQ SCH ×5 (08:51→18:50)
[2021-08-12] MEDS: cefTRIAXone 1,000 MG in 0.9 % Sodium Chloride 10 ML IVP SCH (08:52)
[2021-08-12] MEDS: predniSONE 20 MG TABLET PO SCH (08:53)
[2021-08-12] MEDS: GuaiFENesin/Dextromethorphan TABLET PO PRN (08:53)
[2021-08-12] MEDS: Insulin DETEMIR 100 UNIT/ML X5UNITS SUBQ SCH ×2 (09:14→21:06)
[2021-08-12] MEDS: carvediloL 6.25 MG TABLET PO SCH ×2 (09:36→18:36)
[2021-08-12 10:20] LABS: VBG Ionized Calcium 1.13 mmol/L (1.15-1.35)
[2021-08-12] MEDS: Calcium Chloride 4,000 MG in 0.9 % Sodium Chloride 1,000 ML CRRT SCH (10:30)
[2021-08-12] MEDS: Azithromycin 500 MG in 0.9 % Sodium Chloride 250 ML IVPB SCH (11:02)
[2021-08-12 14:09] LABS: Hepatitis B Surface Antibody < 3.10 mIU/mL
[2021-08-12 14:19] LABS: Hepatitis B Surface Antigen Nonreactive (Nonreactive)
[2021-08-12] MEDS: DOBUTamine 1,000 MG/250 ML BAG IVC SCH (14:22)
[2021-08-12 14:38] LABS: VBG Ionized Calcium 1.19 mmol/L (1.15-1.35)
[2021-08-12] MEDS ORDERED: *HR* Heparin 5,000 UNIT/ML VIAL ONE (16:48)
[2021-08-13 03:41] LABS: Basophils % 0.3 %; Eosinophils % 0.2 %; Hemoglobin 9.6 g/dL (12.9-16.9); Immature Granulocytes % 2.6 % (0-4); Lymphocytes # 0.7 K/mcL (0.6-4.6); Lymphocytes % 5.2 %; Mean Corpuscular Hemoglobin 26.9 pg (28.0-33.3); Mean Corpuscular Volume 89.6 fL (83.0-100.0); Mean Platelet Volume 11.6 fL (9.4-12.4); Monocytes % 7.5 %; Nucleated Red Blood Cells 0.2 /100 WBC (0); Platelet Count 199 K/mcL (140-400); Red Blood Count 3.57 M/mcL (4.19-5.50); Red Cell Distribution Width 14.4 % (11.5-14.5); Segmented Neutrophils % 84.2 %
[2021-08-13 03:46] LABS: VBG Ionized Calcium 1.19 mmol/L (1.15-1.35)
[2021-08-13] MEDS: Ipratropium/Albuterol Neb 3 ML IH SCH ×6 (03:56→23:31)
[2021-08-13 04:00] LABS: Albumin 3.6 g/dL (3.5-5.7); Albumin/Globulin Ratio 1.1 (1.1-2.2); Bilirubin,Direct 0.2 mg/dL (0.0-0.2); Bilirubin,Indirect 0.4 mg/dL (0.0-1.0); Bilirubin,Total 0.6 mg/dL (0.3-1.0); Calcium 9.1 mg/dL (8.6-10.3); Globulin 3.2 g/dL (2.4-3.5); Magnesium 2.5 mg/dL (1.6-2.6); Phosphorous 3.4 mg/dL (2.7-4.5); Potassium 4.6 mEq/L (3.5-5.1); Total Protein 6.8 g/dL (6.4-8.9)
[2021-08-13] MEDS: *HR* Heparin 5,000 UNIT/ML VIAL SQ SCH ×3 (06:32→23:13)
[2021-08-13] MEDS ORDERED: 0.9 % Sodium Chloride 1,000 ML PRIME SCH ×2 (07:15→14:08)
[2021-08-13] MEDS ORDERED: 0.9 % Sodium Chloride 250 ML IVC PRN ×2 (07:15→14:08)
[2021-08-13] MEDS ORDERED: Albumin 25% 25gram/100mL 25 GM/100 ML IV.SOLN IVPB PRN ×2 (07:15→14:08)
[2021-08-13] MEDS: Norepinephrine 4 MG/254 ML IV.SOLN IVC SCH ×2 (07:22→14:02)
[2021-08-13 07:52] LABS: ANA IgG by ELISA NONE DETECTED (None Detected); Serine Protease-3 Antibody 8 AU/mL (0-19)
[2021-08-13] MEDS: cefTRIAXone 1,000 MG in 0.9 % Sodium Chloride 10 ML IVP SCH (08:33)
[2021-08-13] MEDS: predniSONE 20 MG TABLET PO SCH (08:34)
[2021-08-13] MEDS: carvediloL 6.25 MG TABLET PO SCH ×2 (08:34→19:23)
[2021-08-13] MEDS ORDERED: *HR* Heparin 10,000 UNIT/10 ML VIAL IV PRN ×2 (08:39→14:08)
[2021-08-13] MEDS: Insulin DETEMIR 100 UNIT/ML X5UNITS SUBQ SCH ×2 (08:42→23:11)
[2021-08-13] MEDS: Insulin LISPRO 300 UNITS/3 ML VIAL SUBQ SCH ×6 (08:43→23:06)
[2021-08-13] MEDS ORDERED: Azithromycin 250 MG TABLET PO SCH (09:00)
[2021-08-13] MEDS: DOBUTamine 1,000 MG/250 ML BAG IVC SCH (14:01)
[2021-08-13] MEDS ORDERED: Acetaminophen 325 MG TABLET PO PRN (14:08)
[2021-08-13] MEDS ORDERED: GuaiFENesin/Dextromethorphan TABLET PO PRN (14:08)
[2021-08-13] MEDS ORDERED: Albuterol 2.5 MG/3 ML NEBULIZER IH PRN (14:08)
[2021-08-13] MEDS ORDERED: Ondansetron ODT 4 MG TAB.RAPDIS SL PRN (14:08)
[2021-08-13] MEDS ORDERED: Dextrose 4 GM Chewable Tablets PO PRN ×2 (14:08)
[2021-08-13] MEDS ORDERED: *HR* Alteplase (Cathflo) 2 MG VIAL IVP PRN (14:08)
[2021-08-13] MEDS ORDERED: D5% in Water 1,000 ML IVC PRN (14:08)
[2021-08-13] MEDS ORDERED: *HR* Dextrose 50 % in Water (Syg) 50 ML SYRINGE IVP PRN (14:08)
[2021-08-13] MEDS ORDERED: *HR* HYDROcodone/Acet 5/325 mg TABLET PO PRN (14:08)
[2021-08-14] MEDS: Ipratropium/Albuterol Neb 3 ML IH SCH ×6 (03:26→23:57)
[2021-08-14 03:41] LABS: VBG Ionized Calcium 1.18 mmol/L (1.15-1.35)
[2021-08-14 03:45] LABS: Basophils # 0.1 K/mcL (0.0-0.2); Basophils % 0.4 %; Eosinophils % 0.3 %; Hematocrit 30.1 % (37.5-50.1); Hemoglobin 9.4 g/dL (12.9-16.9); Immature Granulocytes % 7.3 % (0-4); Lymphocytes # 1.2 K/mcL (0.6-4.6); Lymphocytes % 8.9 %; Mean Corpuscular HGB Conc 31.2 g/dL (31.6-35.5); Mean Corpuscular Hemoglobin 27.3 pg (28.0-33.3); Mean Corpuscular Volume 87.5 fL (83.0-100.0); Mean Platelet Volume 11.5 fL (9.4-12.4); Monocytes # 0.9 K/mcL (0.0-1.3); Monocytes % 6.9 %; Neutrophils # 10.3 K/mcL (1.6-8.9); Nucleated Red Blood Cells 0.1 /100 WBC (0); Platelet Count 200 K/mcL (140-400); Red Blood Count 3.44 M/mcL (4.19-5.50); Red Cell Distribution Width 14.1 % (11.5-14.5); Segmented Neutrophils % 76.2 %; White Blood Count 13.5 K/mcL (4.3-11.1)
[2021-08-14 04:08] LABS: Alanine Aminotransferase 51 Units/L (7-52); Albumin 3.4 g/dL (3.5-5.7); Albumin/Globulin Ratio 0.9 (1.1-2.2); Alkaline Phosphatase 96 Units/L (34-104); Aspartate Amino Transferase 53 Units/L (13-39); BUN/Creatinine Ratio 53 (6-26); Bilirubin,Direct 0.2 mg/dL (0.0-0.2); Bilirubin,Indirect 0.5 mg/dL (0.0-1.0); Bilirubin,Total 0.7 mg/dL (0.3-1.0); Blood Urea Nitrogen 77 mg/dL (6-20); Calcium 9.2 mg/dL (8.6-10.3); Carbon Dioxide 33 mEq/L (23-29); Chloride 91 mEq/L (98-107); Globulin 3.6 g/dL (2.4-3.5); Glucose 123 mg/dL (70-105); Magnesium 2.5 mg/dL (1.6-2.6); Osmolality,Calculated 294 (280-300); Phosphorous 2.9 mg/dL (2.7-4.5); Potassium 4.4 mEq/L (3.5-5.1); Sodium 130 mEq/L (136-145); eGFR For African Americans > 60 (> 60); eGFR For Non-African Americans 51 (> 60)
[2021-08-14] MEDS: *HR* Heparin 5,000 UNIT/ML VIAL SQ SCH ×3 (05:13→20:28)
[2021-08-14 06:41] LABS: Alpha 2 Globulin (PEP) 1.04 g/dL (0.48-1.05); Beta Globulin (PEP) 0.84 g/dL (0.48-1.10)
[2021-08-14] MEDS: Insulin LISPRO 300 UNITS/3 ML VIAL SUBQ SCH ×4 (08:43→20:27)
[2021-08-14] MEDS: predniSONE 20 MG TABLET PO SCH (08:51)
[2021-08-14] MEDS: Furosemide 40 MG TABLET PO SCH ×2 (08:51→17:07)
[2021-08-14] MEDS: Insulin DETEMIR 100 UNIT/ML X5UNITS SUBQ SCH ×2 (08:52→21:27)
[2021-08-14] MEDS: carvediloL 6.25 MG TABLET PO SCH ×2 (08:52→17:07)
[2021-08-14] MEDS ORDERED: Azithromycin 250 MG TABLET PO SCH (09:00)
[2021-08-14] MEDS: cefTRIAXone 1,000 MG in 0.9 % Sodium Chloride 10 ML IVP SCH (09:05)
[2021-08-14 10:43] LABS: IFE Reflexed NOT DONE
[2021-08-14 19:40] LABS: ANCA IFA Titer <1:20 (<1:20)
[2021-08-15] MEDS: Ipratropium/Albuterol Neb 3 ML IH SCH ×5 (03:48→20:04)
[2021-08-15] MEDS: *HR* Heparin 5,000 UNIT/ML VIAL SQ SCH ×3 (05:54→21:23)
[2021-08-15 06:24] LABS: VBG Ionized Calcium 1.15 mmol/L (1.15-1.35)
[2021-08-15 06:32] LABS: Hematocrit 31.3 % (37.5-50.1); Hemoglobin 10.1 g/dL (12.9-16.9); Mean Corpuscular HGB Conc 32.3 g/dL (31.6-35.5); Mean Corpuscular Hemoglobin 27.8 pg (28.0-33.3); Mean Corpuscular Volume 86.2 fL (83.0-100.0); Mean Platelet Volume 11.1 fL (9.4-12.4); Platelet Count 196 K/mcL (140-400); Red Blood Count 3.63 M/mcL (4.19-5.50); White Blood Count 16.3 K/mcL (4.3-11.1)
[2021-08-15 06:51] LABS: Eosinophils # 0.7 K/mcL (0.0-0.6); Monocytes # 0.3 K/mcL (0.0-1.3); Platelet Estimate Normal (Normal)
[2021-08-15] MEDS: cefTRIAXone 1,000 MG in 0.9 % Sodium Chloride 10 ML IVP SCH (08:37)
[2021-08-15] MEDS: carvediloL 6.25 MG TABLET PO SCH ×2 (08:38→17:14)
[2021-08-15] MEDS: predniSONE 20 MG TABLET PO SCH (08:38)
[2021-08-15] MEDS: Aspirin 81 MG TAB.CHEW PO SCH (08:38)
[2021-08-15] MEDS: Insulin DETEMIR 100 UNIT/ML X5UNITS SUBQ SCH ×2 (08:38→21:23)
[2021-08-15] MEDS: Furosemide 40 MG TABLET PO SCH (08:38)
[2021-08-15] MEDS: Insulin LISPRO 300 UNITS/3 ML VIAL SUBQ SCH ×4 (08:39→21:23)
[2021-08-15 08:53] LABS: Alanine Aminotransferase 36 Units/L (7-52); Albumin 3.3 g/dL (3.5-5.7); Alkaline Phosphatase 92 Units/L (34-104); Aspartate Amino Transferase 25 Units/L (13-39); BUN/Creatinine Ratio 55 (6-26); Bilirubin,Total 0.6 mg/dL (0.3-1.0); Blood Urea Nitrogen 70 mg/dL (6-20); Calcium 8.8 mg/dL (8.6-10.3); Carbon Dioxide 37 mEq/L (23-29); Chloride 90 mEq/L (98-107); Globulin 3.4 g/dL (2.4-3.5); Glucose 159 mg/dL (70-105); Magnesium 2.5 mg/dL (1.6-2.6); Osmolality,Calculated 294 (280-300); Phosphorous 3.4 mg/dL (2.7-4.5); Potassium 4.5 mEq/L (3.5-5.1); Sodium 130 mEq/L (136-145); Total Protein 6.7 g/dL (6.4-8.9); eGFR For African Americans > 60 (> 60); eGFR For Non-African Americans 59 (> 60)
[2021-08-15] MEDS: Furosemide 40 MG/4 ML VIAL IVP SCH ×2 (11:37→21:22)
[2021-08-15 12:29] LABS: ANCA IFA Pattern NONE DETECTED (None Detected); Serine Protease-3 Antibody 8 AU/mL (0-19)
[2021-08-16] MEDS: Ipratropium/Albuterol Neb 3 ML IH SCH ×7 (00:22→22:57)
[2021-08-16] MEDS: *HR* Heparin 5,000 UNIT/ML VIAL SQ SCH ×3 (05:41→21:12)
[2021-08-16 06:08] LABS: VBG Ionized Calcium 1.12 mmol/L (1.15-1.35)
[2021-08-16 06:09] LABS: Basophils # 0.1 K/mcL (0.0-0.2); Basophils % 0.8 %; Eosinophils # 0.2 K/mcL (0.0-0.6); Eosinophils % 1.1 %; Hematocrit 31.6 % (37.5-50.1); Hemoglobin 10.1 g/dL (12.9-16.9); Immature Granulocytes % 16.8 % (0-4); Lymphocytes # 1.9 K/mcL (0.6-4.6); Lymphocytes % 12.1 %; Mean Corpuscular Hemoglobin 27.5 pg (28.0-33.3); Mean Corpuscular Volume 86.1 fL (83.0-100.0); Mean Platelet Volume 11.1 fL (9.4-12.4); Monocytes # 0.8 K/mcL (0.0-1.3); Monocytes % 4.9 %; Neutrophils # 10.3 K/mcL (1.6-8.9); Platelet Count 225 K/mcL (140-400); Red Blood Count 3.67 M/mcL (4.19-5.50); Red Cell Distribution Width 13.9 % (11.5-14.5); Segmented Neutrophils % 64.3 %
[2021-08-16 06:31] LABS: Alanine Aminotransferase 31 Units/L (7-52); Albumin 3.4 g/dL (3.5-5.7); Alkaline Phosphatase 86 Units/L (34-104); Aspartate Amino Transferase 21 Units/L (13-39); BUN/Creatinine Ratio 53 (6-26); Bilirubin,Total 0.5 mg/dL (0.3-1.0); Blood Urea Nitrogen 62 mg/dL (6-20); Calcium 8.8 mg/dL (8.6-10.3); Carbon Dioxide 35 mEq/L (23-29); Chloride 90 mEq/L (98-107); Globulin 3.5 g/dL (2.4-3.5); Glucose 168 mg/dL (70-105); Magnesium 2.3 mg/dL (1.6-2.6); Osmolality,Calculated 293 (280-300); Phosphorous 3.7 mg/dL (2.7-4.5); Potassium 4.6 mEq/L (3.5-5.1); Sodium 131 mEq/L (136-145); Total Protein 6.9 g/dL (6.4-8.9); eGFR For African Americans > 60 (> 60); eGFR For Non-African Americans > 60 (> 60)
[2021-08-16 06:48] LABS: Platelet Estimate Normal (Normal)
[2021-08-16] MEDS: carvediloL 6.25 MG TABLET PO SCH ×2 (07:55→16:36)
[2021-08-16] MEDS: Insulin LISPRO 300 UNITS/3 ML VIAL SUBQ SCH ×4 (07:55→21:12)
[2021-08-16] MEDS: Aspirin 81 MG TAB.CHEW PO SCH (07:55)
[2021-08-16] MEDS: Furosemide 40 MG/4 ML VIAL IVP SCH ×2 (07:56→21:11)
[2021-08-16] MEDS: Insulin DETEMIR 100 UNIT/ML X5UNITS SUBQ SCH ×2 (08:03→21:12)
[2021-08-16 22:45] VITALS: PULSE 75
[2021-08-16] MEDS ORDERED: Melatonin 3 MG TABLET PO ONE (23:05)
[2021-08-17 00:52] LABS: Hematocrit 31.9 % (37.5-50.1); Hemoglobin 10.3 g/dL (12.9-16.9); Mean Corpuscular HGB Conc 32.3 g/dL (31.6-35.5); Mean Corpuscular Hemoglobin 27.9 pg (28.0-33.3); Mean Corpuscular Volume 86.4 fL (83.0-100.0); Platelet Count 216 K/mcL (140-400); Red Blood Count 3.69 M/mcL (4.19-5.50); White Blood Count 16.4 K/mcL (4.3-11.1)
[2021-08-17 00:55] LABS: VBG Ionized Calcium 1.14 mmol/L (1.15-1.35)
[2021-08-17 01:08] LABS: Alanine Aminotransferase 28 Units/L (7-52); Albumin 3.2 g/dL (3.5-5.7); Albumin/Globulin Ratio 0.9 (1.1-2.2); Alkaline Phosphatase 80 Units/L (34-104); Aspartate Amino Transferase 20 Units/L (13-39); BUN/Creatinine Ratio 46 (6-26); Bilirubin,Total 0.5 mg/dL (0.3-1.0); Blood Urea Nitrogen 51 mg/dL (6-20); Calcium 8.7 mg/dL (8.6-10.3); Carbon Dioxide 35 mEq/L (23-29); Chloride 89 mEq/L (98-107); Globulin 3.5 g/dL (2.4-3.5); Glucose 197 mg/dL (70-105); Osmolality,Calculated 289 (280-300); Phosphorous 4.2 mg/dL (2.7-4.5); Potassium 4.7 mEq/L (3.5-5.1); Sodium 130 mEq/L (136-145); Total Protein 6.7 g/dL (6.4-8.9); eGFR For African Americans > 60 (> 60); eGFR For Non-African Americans > 60 (> 60)
[2021-08-17 01:14] LABS: Lymphocytes # 1.3 K/mcL (0.6-4.6); Monocytes # 0.3 K/mcL (0.0-1.3); Neutrophils # 13.8 K/mcL (1.6-8.9); Platelet Estimate Normal (Normal)
[2021-08-17] MEDS: Ipratropium/Albuterol Neb 3 ML IH SCH ×3 (04:08→11:11)
[2021-08-17] MEDS: *HR* Heparin 5,000 UNIT/ML VIAL SQ SCH (05:12)
[2021-08-17 06:39] VITALS: BP 120/76; TEMP 98.3
[2021-08-17] MEDS: Insulin LISPRO 300 UNITS/3 ML VIAL SUBQ SCH (09:08)
[2021-08-17] MEDS: Furosemide 20 MG TABLET PO SCH ×2 (09:10→09:15)
[2021-08-17] MEDS: carvediloL 6.25 MG TABLET PO SCH (09:10)
[2021-08-17] MEDS: Aspirin 81 MG TAB.CHEW PO SCH (09:10)
[2021-08-17] MEDS: Insulin DETEMIR 100 UNIT/ML X5UNITS SUBQ SCH (09:22)
[2021-08-17 11:14] VITALS: O2SAT 95
== END 2021-08-17 11:56 | disposition home or self-care (01) | DRG 291 ==
LOC: EMEROOARM 16:21 → 3NENU 16:21 → SUATTDRO 08-09 12:24 → ICNU 08-11 09:31 → 2ANU 08-13 15:07
PROVIDERS: ADMIT Internal Medicine; ATTEND Family Medicine